=== PATIENT | female | born 1970 | race African-American/Black ===

== ENCOUNTER 2019-04-18 17:19 | Emergency (ER) | payer OTHER, SELFPAY ==
--- NOTE | ~2019-04-18 | XR_ITS ---
EXAMINATION: XR ankle LT min 3V DATE: 04/18/2019 18:02 INDICATION: Lateral swelling at the left ankle TECHNIQUE: Anteroposterior, oblique, mortise, and lateral views of the left ankle were obtained. COMPARISON: None. FINDINGS: Alignment is normal. No fracture. Joint spaces are well maintained. No ankle joint effusion. The so ft tissues are unremarkable. IMPRESSION: 1. Negative left ankle radiographs. Reviewed, dictated and finalized at location A. [facility] [employer]
--- NOTE | ~2019-04-18 | XR_ITS ---
EXAMINATION: XR ankle RT min 3V DATE: 04/18/2019 18:03 INDICATION: Lateral right ankle swelling TECHNIQUE: Anteroposterior, oblique, mortise, and lateral views of the right ankle were obtained. COMPARISON: None. FINDINGS: Alignment is normal. No fracture. Joint spaces are well maintained. No ankle joint effusion. The so ft tissues are unremarkable. IMPRESSION: 1. Negative right ankle radiographs. Reviewed, dictated and finalized at location A. [employer]
[2019-04-18 17:21] VITALS: BP 137/65; PULSE 77; RESP 19; TEMP 36.5; O2SAT 100
--- NOTE | 2019-04-18 17:54 | ED.LOWEXIN ---
HPI - Extremity Injury (Lower) General Chief Complaint: Extremity Injury, Lower <Bianca Sapp PA-C - Last Filed: 04/18/19 19:25> Stated Complaint: ankle pain, knots and leg pain <Bianca Sapp PA-C - Last Filed: 04/18/19 19:25> Time Seen by Provider: 04/18/19 17:37 <Bianca Sapp PA-C - Last Filed: 04/18/19 19:25> Source: patient <REESE Mckeon Last Filed: 04/18/19 19:25> Mode of arrival: ambulatory <REESE Mckeon Last Filed: 04/18/19 19:25> Limitations: no limitations <Bianca Sapp PA-C - Last Filed: 04/18/19 19:25> History of Present Illness HPI Narrative: This is a 48 year old female that presents to the ER for bilateral lateral ankle swelling since yesterday. No known injury or trauma. Reports she noted some swelling to the outside of her ankles. Denies any pain to the area. Also reports some intermittent pain down the back of her legs. Denies fever, erythema, back pain, numbness or weakness. <Bianca Sapp PA-C - Last Filed: 04/18/19 19:25> Related Data Home Medications: Home Medications Medication Instructions Recorded Confirmed simvastatin mg 04/18/19 <Bianca Sapp PA-C - Last Filed: 04/18/19 19:25> Allergies/Adverse Reactions: Allergies Allergy/AdvReac Type Severity Reaction Status Date / Time erythromycin base Allergy Mild Unknown Verified 04/18/19 17:30 Penicillins Allergy Mild Unknown Verified 04/18/19 17:30 <REESE Mckeon Last Filed: 04/18/19 19:25> Review of Systems Review of Systems: Narrative: CONSTITUTIONAL: Denies fever SKIN: Denies rash or erythema MUSCULOSKELETAL: Denies back pain, joint pain, or myalgia. NEUROLOGIC: Denies numbness, or weakness. <REESE Mckeon Last Filed: 04/18/19 19:25> All systems reviewed & are unremarkable except as noted in HPI and below <Bianca Sapp PA-C - Last Filed: 04/18/19 19:25> [facility] Past Medical History Medical History: Medical History (Updated 04/18/19 @ 19:11 by Bianca Sapp PA-C) History of hyperlipidemia History of hypertension <Bianca Sapp PA-C - Last Filed: 04/18/19 19:25> Surgical History Surgical History: Surgical History (Updated 04/18/19 @ 17:59 by Bianca Sapp PA-C) History of appendectomy History of thyroidectomy History of tubal ligation <Bianca Sapp PA-C - Last Filed: 04/18/19 19:25> Social History Social History: Social History Gender identity (if verbalized by the patient): Female <Bianca Sapp PA-C - Last Filed: 04/18/19 19:25> Exam Narrative: Exam Narrative: GENERAL: Well-appearing, well-nourished, and in no acute distress. HEAD: Normocephalic, atraumatic. EYES: EOMI. CHEST: Clear to auscultation. No respiratory distress. No wheezes rales or rhonchi HEART: Regular rate and rhythm. No murmur heard. Normal peripheral pulses. BACK: No midline spinal tenderness EXTREMITIES: Normal range of motion. Mild swelling just anterior to the lateral malleoli bilaterally. No erythema or warmth. Strength equal in bilateral lower extremities. Normal sensation. Normal DP pulses SKIN: Warm, dry, no rash. NEURO: No focal deficits. Alert and oriented x3. PSYCH: Normal mood and affect <Bianca Sapp PA-C - Last Filed: 04/18/19 19:25> Course Vital Signs Vital signs: Vital Signs Temperature 36.5 C 04/18/19 17:21 Pulse Rate 77 04/18/19 17:21 Respiratory Rate 19 04/18/19 17:21 Blood Pressure 137/65 04/18/19 17:21 Pulse Oximetry 100 04/18/19 17:21 Temperature 36.5 C 04/18/19 17:21 Pulse Rate 77 04/18/19 17:21 Respiratory Rate 19 04/18/19 17:21 Blood Pressure 137/65 04/18/19 17:21 Pulse Oximetry 100 04/18/19 17:21 <Bianca Sapp PA-C - Last Filed: 04/18/19 19:25> Vital Signs Temperature 36.5 C 04/18/19 17:21 Pulse Rate 77 04/18/19 17:21 Respiratory Rate 19 04/18/19 17:21 Blood Pressure 137/65 04/18/19 17:2
[2019-04-18 18:12] LABS: Basophils Absolute Auto 0.1 K/mm3 (0.0-0.1); Basophils Percent Auto 0.7 % (0.2-1.2); Eosinophils Absolute Auto 0.1 K/mm3 (0-0.3); Eosinophils Percent Auto 1.2 % (0-4.4); Hematocrit 41.4 % (37.0-47.0); Hemoglobin 14.3 g/dL (12.0-15.0); Immature Granulocyte Absolute 0.01 K/mm3 (0.00-0.031); Immature Granulocyte Percent A 0.1 % (0-0.5); Lymphocytes Percent Auto 45.5 % (18.3-44.2); Mean Corpuscular HGB Conc 34.5 g/dl (32-36); Mean Corpuscular Hemoglobin 29.7 pg (26-34); Mean Corpuscular Volume 85.9 fl (80-100); Mean Platelet Volume 9.9 fl (7.4-10.4); Monocytes Absolute Auto 0.5 K/mm3 (0.1-0.6); Monocytes Percent Auto 6.5 % (2.6-8.5); Neutrophils Absolute Auto 3.3 K/mm3 (1.3-6.7); Platelet Count Result 279 k/mm3 (150-375); Red Blood Count 4.82 M/mm3 (4.2-5.4); Red Cell Distribution Width 11.7 % (11.5-14.5); White Blood Count 7.3 K/mm3 (4.5-10.0)
[2019-04-18 18:28] LABS: Blood Urea Nitrogen 11 mg/dL (7-17); CRP < 0.5 mg/dL (<1.0); Calcium 9.3 mg/dL (8.4-10.2); Carbon Dioxide 29 mmol/L (22-30); Chloride 99 mmol/L (98-107); Estimated Glomerular Filt Rate > 60; Glucose 105 mg/dL (65-105); Potassium 3.6 mmol/L (3.4-5.0); Sodium 140 mmol/L (137-145); Uric Acid 7.1 mg/dL (2.5-7.5)
[2019-04-18 18:34] LABS: Erythrocyte Sedimentation Rate 15 mm/hr (0-20)
== END 2019-04-18 19:34 | disposition home or self-care (01) ==
PROVIDERS: Physician Assistant; Emergency Provider Emergency Medicine
DX: M25.472 Effusion, left ankle (principal); M25.471 Effusion, right ankle; E78.5 Hyperlipidemia, unspecified; I10 Essential (primary) hypertension; E89.0 Postprocedural hypothyroidism
CPT/HCPCS: 36415; 73610; 80048; 84550; 85025; 85652; 86140; 99284

== ENCOUNTER 2019-05-20 16:15 | Emergency (ER) | payer OTHER, SELFPAY ==
[2019-05-20] VITALS (20 sets, daily range): BP systolic 140–151; BP diastolic 70–74; PULSE 58–72; RESP 12–22; TEMP 37.1; O2SAT 95–100
--- NOTE | ~2019-05-20 | XR_ITS ---
EXAMINATION: XR chest 2V DATE: 05/20/2019 16:36 INDICATION: Midsternal chest pain. Cough. TECHNIQUE: Frontal and lateral views of the chest were obtained. COMPARISON: None. FINDINGS: The chest demonstrates clear lungs without pneumonia, pleural effusion, or pneumothorax. Th e heart size is normal. IMPRESSION: 1. No acute cardiopulmonary disease. Reviewed, dictated and finalized at location A.
--- NOTE | 2019-05-20 16:24 | ED.CHESTPAIN ---
HPI - Chest Pain General Chief Complaint: Chest Pain Stated Complaint: Chest Pain Time Seen by Provider: 05/20/19 16:21 Source: patient Mode of arrival: ambulatory Limitations: no limitations History of Present Illness HPI narrative: A 48 y/o female presents to the ED with c/o nonradiating midsternal CP. Pt states that the CP started this morning and has been intermittent since. She notes that it is a quick shock of pain that only lasts a few seconds. Pt does not note any aggravating or alleviating factors for the CP. She denies SOB, nausea, and ABD pain. Pt has no other complaints at this time. complaint: chest pain (Midsternal) Onset (ago): hour(s) (Today) Timing of current episode: episodic Pain location: other (Midsternal) Pain radiation: none Quality: other (Shock) Relieving factors: nothing Exacerbating factors: nothing Associated symptoms: other (None) Related Data Home Medications Medication Instructions Recorded Confirmed simvastatin mg 04/18/19 aspirin 81 mg PO DAILY 05/20/19 bisoprolol-hydrochlorothiazide tablet 05/20/19 Allergies Allergy/AdvReac Type Severity Reaction Status Date / Time erythromycin base Allergy Mild Unknown Verified 04/18/19 17:30 Penicillins Allergy Mild Unknown Verified 04/18/19 17:30 Review of Systems Review of Systems: All systems reviewed & are unremarkable except as noted in HPI and below Cardiovascular: Cardiovascular: Reports chest pain (Midsternal) Respiratory: Respiratory: Denies dyspnea Gastrointestinal: Gastrointestinal: Denies abdominal pain and Denies nausea PMFSH Past Medical History Medical History (Updated 05/20/19 @ 20:24 by Yosvany Linn DO) History of hyperlipidemia History of hypertension History of hysteroscopy Surgical History Surgical History History of appendectomy History of thyroidectomy History of tubal ligation Social History Social History (Updated 05/20/19 @ 16:28 by Tammy Parker) Smoking status: Unknown if ever smoked Gender identity (if verbalized by the patient): Female Exam Narrative: Exam Narrative: APPEARANCE: No acute distress, nontoxic, resting in bed EYES: EOMI HEENT: Normocephalic, atraumatic, OMM RESPIRATORY: No respiratory distress Clear to auscultation bilaterally with no rhonchi wheezing or rales. CARDIOVASCULAR: Regular rate and rhythm without murmurs rubs or gallops. Chest: Tender to palpation over the left anterior chest just lateral to the sternum in the region of ribs 8 no sign of ecchymosis ABDOMINAL: Soft, nontender, nondistended, no rebound or guarding MUSCULOSKELETAl: Moves all extremities. No clubbing, cyanosis or edema. NEURO: Awake and alert. Following commands, speech normal, no focal deficits SKIN:: Warm, dry. No rashes lesions or abrasions PSYCHIATRIC: Normal affect/mood, Course Course Emergency Course: Patient is had no chest pain while in ED Discussed with patient results of workup and diagnosis. Discussed need for follow-up with primary care, proper use of medication, and reasons to return to the emergency department. Patient understands and agrees to current treatment plan Vital Signs Vital signs: Vital Signs Pulse Rate 72 05/20/19 16:20 Respiratory Rate 15 05/20/19 16:20 Blood Pressure 151/74 H 05/20/19 16:20 Pulse Oximetry 100 05/20/19 16:20 Temperature 98.7 F 05/20/19 16:29 Pulse Rate 61 05/20/19 19:45 Respiratory Rate 20 05/20/19 19:45 Blood Pressure 140/70 05/20/19 16:29 Pulse Oximetry 100 05/20/19 18:45 MDM - Chest Pain MDM Narrative Medical decision making narrative: Patient's EKGs and labs are without significant high risk changes. Cardiac risk factors reviewed. Patient is felt likely low risk for ACS and reasonable for further risk stratification testing as an outpatient. Pain was not sudden or maximal in onset without tearing or ripping quality. No other signs of symptoms suggest aortic di
--- NOTE | 2019-05-20 16:26 | ECG_ITS ---
Measurements Intervals [place] Rate: 68 P: 3 RI: 154 QRS: 61 QRSD: 87 T: 37 QT: 409 QTc: 435 Interpretive Statements SINUS RHYTHM NORMAL ECG Electronically Signed On 05-20-2019 21:04:19 CDT by Neo Sharma D.O.
[2019-05-20 16:50] LABS: Basophils Absolute Auto 0.1 K/mm3 (0.0-0.1); Basophils Percent Auto 0.8 % (0.2-1.2); Eosinophils Absolute Auto 0.1 K/mm3 (0-0.3); Eosinophils Percent Auto 1.8 % (0-4.4); Hematocrit 40.6 % (37.0-47.0); Lymphocytes Absolute Auto 2.71 K/mm3 (0.9-3.2); Lymphocytes Percent Auto 43.8 % (18.3-44.2); Mean Corpuscular HGB Conc 34.5 g/dl (32-36); Mean Corpuscular Hemoglobin 29.7 pg (26-34); Mean Platelet Volume 9.6 fl (7.4-10.4); Monocytes Absolute Auto 0.5 K/mm3 (0.1-0.6); Monocytes Percent Auto 7.3 % (2.6-8.5); Neutrophils Absolute Auto 2.9 K/mm3 (1.3-6.7); Neutrophils Percent Auto 46.3 % (45.5-73.1); Platelet Count Result 262 k/mm3 (150-375); Red Blood Count 4.72 M/mm3 (4.2-5.4); Red Cell Distribution Width 11.9 % (11.5-14.5); White Blood Count 6.2 K/mm3 (4.5-10.0)
[2019-05-20 16:59] LABS: Prothrombin Time 12.6 Seconds (11.1-14.7)
[2019-05-20 17:00] LABS: Partial Thromboplastin Time 26.5 SECONDS (22.3-36.8)
[2019-05-20 17:01] LABS: Alanine Aminotransferase 27 U/L (4-35); Albumin Level 4.1 g/dL (3.5-5.1); Alkaline Phosphatase 94 U/L (38-126); Aspartate Amino Transferase 33 U/L (14-36); Bilirubin,Total 0.4 mg/dL (0.2-1.3); Blood Urea Nitrogen 10 mg/dL (7-17); Calcium 8.9 mg/dL (8.4-10.2); Carbon Dioxide 31 mmol/L (22-30); Chloride 100 mmol/L (98-107); Estimated CRCL calculation 81 ml/min; Estimated Glomerular Filt Rate > 60; Glucose 95 mg/dL (65-105); Lipase 107 U/L (23-300); Potassium 3.4 mmol/L (3.4-5.0); Sodium 138 mmol/L (137-145)
[2019-05-20 17:13] LABS: Troponin I < 0.012 ng/mL (0.000-0.034)
[2019-05-20 20:02] LABS: Troponin I < 0.012 ng/mL (0.000-0.034)
== END 2019-05-20 20:39 | disposition home or self-care (01) ==
PROVIDERS: Emergency Provider Emergency Medicine; PCP Emergency Medicine
DX: R07.89 Other chest pain (principal); I10 Essential (primary) hypertension; E78.5 Hyperlipidemia, unspecified
CPT/HCPCS: 36415; 71046; 80053; 83690; 84484; 85025; 85610; 85730; 93005; 99284

== ENCOUNTER 2019-11-30 14:37 | Outpatient (CLI) | payer OTHER, SELFPAY ==
--- NOTE | ~2019-11-30 | US_ITS ---
EXAMINATION: US soft tissue head and neck DATE: 11/30/2019 15:13 INDICATION: Left anterior neck localized swelling. TECHNIQUE: Multiple grayscale and Doppler ultrasound images of the neck were obtained. COMPARISON: None FINDINGS: There is no abnormal mass or lymphadenopathy in the patient's area of concern in left anter ior neck. IMPRESSION: 1. No abnormal mass or lymphadenopathy in the patient's area of concern in left anterior neck. Reviewed, dictated and finalized at location A.
== END 2019-11-30 14:38 | disposition home or self-care (01) ==
LOC: ANHIMG 14:42
PROVIDERS: PCP Family Medicine; Visit Provider Family Medicine
DX: R22.1 Localized swelling, mass and lump, neck (principal)
CPT/HCPCS: 76536

== ENCOUNTER 2020-12-28 17:18 | Emergency (ER) | payer OTHER, SELFPAY ==
[2020-12-28 18:03] VITALS: BP 163/93; PULSE 102; RESP 20; TEMP 36.3; O2SAT 98
[2020-12-28 19:40] VITALS: BP 155/88; PULSE 88; RESP 14; TEMP 36.4; O2SAT 98
--- NOTE | 2020-12-28 19:57 | ED.GENADULT ---
HPI - General Adult General Chief complaint: Extremity Problem,Nontraumatic Stated complaint: right side heavy Time Seen by Provider: 12/28/20 19:44 Source: patient and RN notes reviewed Mode of arrival: ambulatory Limitations: no limitations History of Present Illness HPI narrative: Patient is a 50-year-old female who presents to emergency department for evaluation of right leg pain and heaviness that began today and resolved she has been having some issues with musculoskeletal pain and seeing primary care last week for upper back pain and heaviness of the right upper extremity which at this point is resolved she notes today while sitting in the waiting room she developed some pain around the SI joint she denies any chest pain shortness of breath or other complaints presents nondistressed. Patient has not taken anything for symptoms Related Data Home Medications Medication Instructions Recorded Confirmed simvastatin mg 04/18/19 aspirin 81 mg PO DAILY 05/20/19 bisoprolol-hydrochlorothiazide tablet 05/20/19 Allergies Allergy/AdvReac Type Severity Reaction Status Date / Time erythromycin base Allergy Mild Unknown Verified 12/28/20 20:02 Penicillins Allergy Mild Unknown Verified 12/28/20 20:02 Review of Systems Review of Systems: All systems reviewed & are unremarkable except as noted in HPI and below PMFSH Past Medical History Medical History History of hyperlipidemia History of hypertension Surgical History Surgical History History of appendectomy History of hysteroscopy History of thyroidectomy History of tubal ligation Social History Social History Smoking status: Unknown if ever smoked Gender identity (if verbalized by the patient): Female Exam Narrative: GENERAL: Well-appearing, well-nourished, and in no acute distress. HEAD: Normocephalic, atraumatic. EYES: PERRLA and EOMI. ENT: Nares clear, no rhinorrhea or epistaxis. Mucous membranes moist. NECK: Supple. No adenopathy or masses. CHEST: Clear to auscultation. No respiratory distress. No wheezes rales or rhonchi HEART: Regular rate and rhythm. No murmur heard. Normal peripheral pulses. EXTREMITIES: Normal range of motion. No edema. SKIN: Warm, dry, no rash. NEURO: No focal deficits. Alert and oriented x3. Cranial nerves II through XII grossly intact. Normal speech. Normal gait. Motor and sensory intact and symmetrical in the extremities PSYCH: Normal mood and affect. Course Course Emergency Course: Patient with musculoskeletal discomfort will be discharged home with outpatient follow-up given reasons to return patient is afebrile nontoxic-appearing nondistressed felt appropriate for outpatient reevaluation Vital Signs Vital signs: Vital Signs Temperature 97.4 F L 12/28/20 18:03 Pulse Rate 102 H 12/28/20 18:03 Respiratory Rate 20 12/28/20 18:03 Blood Pressure 163/93 H 12/28/20 18:03 Pulse Oximetry 98 12/28/20 18:03 Temperature 97.6 F 12/28/20 19:40 Pulse Rate 88 12/28/20 19:40 Respiratory Rate 14 12/28/20 19:40 Blood Pressure 155/88 H 12/28/20 19:40 Pulse Oximetry 98 12/28/20 19:40 Medical Decision Making MDM Narrative Medical decision making narrative: Patient in the room nondistressed aware of case findings treatment plan diagnosis. Patients injury or pain is consistent with musculoskeletal etiology. No signs of neurological or vascular compromise on exam. Compartments and tisues are soft without signs of compartment syndrome. Pain is felt appropriate for further evaluation on an outpatient basis. Vital Signs Vital Signs: Vital Signs Temperature 97.4 F L 12/28/20 18:03 Pulse Rate 102 H 12/28/20 18:03 Respiratory Rate 20 12/28/20 18:03 Blood Pressure 163/93 H 12/28/20 18:03 Pulse Oximetry 98 12/28/20 18:03
[2020-12-28 20:37] VITALS: BP 155/96; PULSE 73; RESP 18; TEMP 36.8; O2SAT 100
== END 2020-12-28 20:39 | disposition home or self-care (01) ==
LOC: ANHED 20:13
PROVIDERS: Emergency Provider Family Medicine; PCP Family Medicine
DX: M79.604 Pain in right leg (principal); I10 Essential (primary) hypertension; E78.5 Hyperlipidemia, unspecified
CPT/HCPCS: 99283

== ENCOUNTER 2021-04-26 17:07 | Emergency (ER) | payer OTHER, SELFPAY ==
--- NOTE | ~2021-04-26 | XR_ITS ---
EXAMINATION: XR chest 2V DATE: 04/26/2021 17:44 INDICATION: Chest pain TECHNIQUE: PA and lateral views of the chest were obtained. COMPARISON: Chest radiograph dated 05/20/2019 FINDINGS: The lungs remain clear with no focal airspace opacities, pulmonary edema, pleural effusion or pneumot horax. The cardiomediastinal silhouette is normal. Visualized bones and soft tissues are unremarkable . IMPRESSION: 1. No acute cardiopulmonary disease. Reviewed, dictated and finalized at location A. [facility]
--- NOTE | 2021-04-26 17:12 | ECG_ITS ---
Measurements Intervals [place] Rate: 75 P: 38 OR: 144 QRS: 52 QRSD: 78 T: 26 QT: 383 QTc: 428 Interpretive Statements SINUS RHYTHM BASELINE ARTIFACT- I, II, III, AVR, AVL, AVF NORMAL ECG Electronically Signed On 04-26-2021 18:19:13 SUBEDITOR by Neo Sharma D.O.
[2021-04-26 17:23] VITALS: BP 160/98; PULSE 76; RESP 18; TEMP 36.8; O2SAT 100
[2021-04-26 17:38] VITALS: O2SAT 99
--- NOTE | 2021-04-26 17:41 | PC.NURSE ---
pt to Xray at this time.
--- NOTE | 2021-04-26 17:49 | ED.CHESTPAIN ---
HPI - Chest Pain General Chief Complaint: Chest Pain Stated Complaint: chest pain Time Seen by Provider: 04/26/21 17:39 History of Present Illness HPI narrative: 50-year-old female presents to the emergency room with complaints of midsternal chest pain that she has had for the last 3 to 4days reports pain is present for 2 to 3 minutes at a time is occurred multiple times daily. Denies any alleviating or aggravating factors no history of similar chest pain. Denies associated symptoms such as Shortness of breath, dizziness, lightheadedness, or swelling in her feet. States took Tylenol yesterday and that alleviated her pain. Related Data Home Medications Medication Instructions Recorded Confirmed simvastatin mg 04/18/19 aspirin 81 mg PO DAILY 05/20/19 bisoprolol-hydrochlorothiazide tablet 05/20/19 Allergies Allergy/AdvReac Type Severity Reaction Status Date / Time erythromycin base Allergy Mild Unknown Verified 12/28/20 20:02 Penicillins Allergy Mild Unknown Verified 12/28/20 20:02 Review of Systems Review of Systems: CONSTITUTIONAL: Denies fever, chills, or sweats. EYES: Denies visual changes, redness, or discharge. ENT: Denies rhinorrhea, congestion, sore throat, or otalgia. CARDIOVASCULAR: Denies chest pain, palpitations, or edema. RESPIRATORY: Denies cough or dyspnea. GASTROINTESTINAL: Denies abdominal pain, nausea, vomiting, or diarrhea. GENITOURINARY: Denies dysuria or hematuria. SKIN: Denies rash or itching. MUSCULOSKELETAL: Denies back pain, joint pain, or myalgia. NEUROLOGIC: Denies headache, numbness, dizziness, or weakness. PSYCHIATRIC: Denies anxiety or depression. [facility] Past Medical History Medical History History of hyperlipidemia History of hypertension Surgical History Surgical History History of appendectomy History of hysteroscopy History of thyroidectomy History of tubal ligation Social History Social History Smoking status: Unknown if ever smoked Gender identity (if verbalized by the patient): Female Exam Narrative: GENERAL: Well-appearing, well-nourished, and in no acute distress. HEAD: Normocephalic, atraumatic. EYES: PERRLA and EOMI. ENT: Nares clear, no rhinorrhea or epistaxis. Mucous membranes moist. Oropharynx without tonsillar hypertrophy exudate or other lesions. Bilateral TMs pearly basurto nonbulging NECK: Supple. No adenopathy or masses. No carotid bruits or JVD CHEST: Clear to auscultation. No respiratory distress. No wheezes rales or rhonchi HEART: Regular rate and rhythm. No murmur heard. Normal peripheral pulses. ABDOMEN: Soft, nontender, nondistended, normal active bowel sounds. EXTREMITIES: Normal range of motion. No edema. SKIN: Warm, dry, no rash. NEURO: No focal deficits. Alert and oriented x3. PSYCH: Normal mood and affect. Course Course Emergency Course: Initial and repeat troponins are negative chest x-ray is normal CBC [id number] normal D-dimer was negative. Recommend patient follow-up with primary care physician in 2 to 3 days. Patient's heart score is 2. Patient is currently pain-free Vital Signs Vital signs: Vital Signs Temperature 36.8 C 04/26/21 17:23 Pulse Rate 76 04/26/21 17:23 Respiratory Rate 18 04/26/21 17:23 Blood Pressure 160/98 H 04/26/21 17:23 Pulse Oximetry 100 04/26/21 17:23 Temperature 36.4 C L 04/26/21 19:16 Pulse Rate 73 04/26/21 19:17 Respiratory Rate 17 04/26/21 19:17 Blood Pressure 153/87 H 04/26/21 19:16 Pulse Oximetry 98 04/26/21 18:14 MDM - Chest Pain Lab Data Result diagrams: 04/26/21 17:57 04/26/21 17:57 Labs: Lab Results 04/26/21 04/26/21 04/26/21 Range/Units 17:57 17:57 17:57 WBC 6.3 (4.5-10.0) K/mm3 RBC 4.97 (4.2-5.4) M/mm3 Hgb 15.1 H (12.0-15.0) g/dL Hct 43
[2021-04-26] MEDS: ASPIRIN 81 MG CHEWABLE TABLET 324 MG PO (17:58)
--- NOTE | 2021-04-26 18:03 | PC.NURSE ---
dropped one of the 81mg aspirin on the floor. pt did not want to take any of the 4 aspirins and was requesting all new 81mg aspirins. 4 of the 81mg aspirins were wasted and 4 new ones pulled from the pyxis.
[2021-04-26 18:06] LABS: Basophils Absolute Auto 0.1 K/mm3 (0.0-0.1); Eosinophils Absolute Auto 0.1 K/mm3 (0-0.3); Eosinophils Percent Auto 1.3 % (0-4.4); Hematocrit 43.5 % (37.0-47.0); Hemoglobin 15.1 g/dL (12.0-15.0); Immature Granulocyte Absolute 0.01 K/mm3 (0.00-0.031); Immature Granulocyte Percent A 0.2 % (0-0.5); Lymphocytes Percent Auto 46.4 % (18.3-44.2); Mean Corpuscular HGB Conc 34.7 g/dl (32-36); Mean Corpuscular Hemoglobin 30.4 pg (26-34); Mean Corpuscular Volume 87.5 fl (80-100); Mean Platelet Volume 9.6 fl (7.4-10.4); Monocytes Absolute Auto 0.4 K/mm3 (0.1-0.6); Monocytes Percent Auto 6.2 % (2.6-8.5); Neutrophils Absolute Auto 2.8 K/mm3 (1.3-6.7); Neutrophils Percent Auto 44.9 % (45.5-73.1); Platelet Count Result 299 k/mm3 (150-375); Red Blood Count 4.97 M/mm3 (4.2-5.4); Red Cell Distribution Width 12.3 % (11.5-14.5); White Blood Count 6.3 K/mm3 (4.5-10.0)
[2021-04-26 18:14] VITALS: BP 98/83; PULSE 85; RESP 22; O2SAT 98
[2021-04-26 18:18] LABS: Partial Thromboplastin Time 27.5 SECONDS (22.3-36.8); Prothrombin Time 12.7 Seconds (11.1-14.7)
[2021-04-26 18:19] LABS: Alanine Aminotransferase 19 U/L (4-35); Albumin Level 4.6 g/dL (3.5-5.1); Alkaline Phosphatase 99 U/L (38-126); Anion Gap 7 mmol/L (8-16); Aspartate Amino Transferase 37 U/L (14-36); Bilirubin,Total 0.7 mg/dL (0.2-1.3); Blood Urea Nitrogen 9 mg/dL (7-17); Calcium 9.3 mg/dL (8.4-10.2); Carbon Dioxide 30 mmol/L (22-30); Chloride 103 mmol/L (98-107); Estimated CRCL calculation 86 ml/min; Estimated Glomerular Filt Rate > 60; Glucose 89 mg/dL (65-110); Lipase 91 U/L (23-300); Potassium 3.3 mmol/L (3.4-5.0); Sodium 140 mmol/L (137-145)
[2021-04-26 18:31] LABS: Troponin I < 0.012 ng/mL (0.000-0.034)
[2021-04-26 18:49] LABS: D Dimer 0.36 ug/mL (<0.48)
[2021-04-26 19:16] VITALS: BP 153/87; PULSE 79; RESP 21; TEMP 36.4
[2021-04-26 19:17] VITALS: PULSE 73; RESP 17
--- NOTE | 2021-04-26 19:41 | PC.NURSE ---
Handoff received from Yasmeen PEREA. Patient lying in ED stretcher comfortably. AAOX4. GCS 15. Equal and unlabored resp. Skin is warm and dry. IV in place, secured and patent. No complaints at this time. Will repeat troponin at 20:00. Will continue to monitor.
[2021-04-26 21:06] LABS: Troponin I < 0.012 ng/mL (0.000-0.034)
[2021-04-26 21:33] VITALS: BP 157/70; PULSE 70; RESP 16; O2SAT 99
== END 2021-04-26 21:35 | disposition home or self-care (01) ==
PROVIDERS: Emergency Medicine; Emergency Provider Nurse Practitioner Family; PCP Emergency Medicine
DX: R07.89 Other chest pain (principal); I10 Essential (primary) hypertension; E78.5 Hyperlipidemia, unspecified
CPT/HCPCS: 36415; 71046; 80053; 83690; 84484; 85025; 85380; 85610; 85730; 93005; 99284; A9270

== ENCOUNTER 2021-08-29 20:52 | Emergency (ER) | payer OTHER, SELFPAY ==
--- NOTE | ~2021-08-29 | XR_ITS ---
EXAMINATION: XR chest 2V Exam Date/Time: 08/29/2021 21:25 CDT HISTORY: POSTERIOR bilateral-lateral rib pain WORSENING X2 WKS,HX HTN Comparison: 04/26/2021. RESULT: Lines, tubes, and devices: None. Lungs and pleura: Clear. Cardiomediastinal silhouette: Stable cardiomediastinal silhouette. Other: No acute osseous or upper abdominal finding. IMPRESSION: No acute cardiopulmonary process. Reviewed, dictated and finalized at location K.
[2021-08-29 21:00] VITALS: BP 140/51; PULSE 94; RESP 16; TEMP 36.8; O2SAT 100
--- NOTE | 2021-08-29 21:22 | ED.BACK ---
HPI - Back Pain/Injury General Chief Complaint: Back Pain/Injury Stated Complaint: mid back pain Time Seen by Provider: 08/29/21 21:08 History of Present Illness HPI Narrative: 50-year-old female presenting to the emergency department for evaluation of intermittent back pain. Patient states a few months ago she was having back pain and was prescribed naproxen and a muscle relaxant. Patient did not take the naproxen. Patient has been working out recently but is unsure of any incident of injury. Patient states that she was at her first job today and started develop some back pain which she describes as lateral rib pain. Patient did not take anything for the pain today. Patient denies any chest pain or shortness of breath. Patient denies any incident of falls or injuries. Patient denies any associated numbness or weakness. Related Data Home Medications Medication Instructions Recorded Confirmed simvastatin 20 mg tablet mg 04/18/19 aspirin 81 mg tablet,delayed 81 mg PO DAILY 05/20/19 release bisoprolol 5 tablet 05/20/19 mg-hydrochlorothiazide 6.25 mg tablet losartan 50 mg tablet tablet 08/29/21 pantoprazole 40 mg tablet,delayed tablet PO 08/29/21 release Allergies Allergy/AdvReac Type Severity Reaction Status Date / Time erythromycin base Allergy Mild Unknown Verified 08/29/21 21:04 Penicillins Allergy Mild Unknown Verified 08/29/21 21:04 Review of Systems Review of Systems: CONSTITUTIONAL: Denies fever, chills, or sweats. EYES: Denies visual changes, redness, or discharge. ENT: Denies rhinorrhea, congestion, sore throat, or otalgia. CARDIOVASCULAR: Denies chest pain, palpitations, or edema. RESPIRATORY: Denies cough or dyspnea. GASTROINTESTINAL: Denies abdominal pain, nausea, vomiting, or diarrhea. GENITOURINARY: Denies dysuria or hematuria. SKIN: Denies rash or itching. MUSCULOSKELETAL: See HPI NEUROLOGIC: Denies headache, numbness, or weakness. [facility] Past Medical History Medical History History of hyperlipidemia History of hypertension Surgical History Surgical History History of appendectomy History of hysteroscopy History of thyroidectomy History of tubal ligation Social History Social History Smoking status: Unknown if ever smoked Gender identity (if verbalized by the patient): Female Exam Narrative: APPEARANCE: Well appearing, no pain, no distress, well-nourished. HEAD: normocephalic, atraumatic. EYES: PERRLA/EOMI, conjunctivae clear. NOSE: Normal no drainage NECK: Supple. No adenopathy, no masses. RESPIRATORY: Airway patent, respirations nonlabored. Clear to auscultation bilaterally, no rales, rhonchi, wheezing. CARDIOVASCULAR: Regular rate and rhythm without murmurs rubs or gallops. ABDOMINAL: Soft, nontender, nondistended, normal bowel sounds MUSCULOSKELETAL: Moves all extremities. Moderate bilateral/lateral rib tenderness to palpation. No midline spinal tenderness to palpation. NEURO: Alert. Cranial nerves II through XII intact. Good gait. Good coordination SKIN: Warm, dry. Normal Color Course Course Emergency Course: Patient was provided additional medications for pain control for home. Patient was encouraged to close follow-up with her primary care physician. Vital Signs Vital signs: Vital Signs Temperature 98.2 F 08/29/21 21:00 Pulse Rate 94 08/29/21 21:00 Respiratory Rate 16 08/29/21 21:00 Blood Pressure 140/51 L 08/29/21 21:00 Pulse Oximetry 100 08/29/21 21:00 Oxygen Delivery Room Air 08/29/21 21:00 Temperature 98.2 F 08/29/21 21:00 Pulse Rate 94 08/29/21 21:00 Respiratory Rate 16 08/29/21 21:00 Blood Pressure 140/51 L 08/29/21 21:00 Pulse Oximetry 100 08/29/21 21:00 Oxygen Delivery Room Air 08/29/21 21:00 Discharge Plan Discharge Clinical Im
[2021-08-29] MEDS: NAPROXEN 500 MG TABLET PO (21:39)
== END 2021-08-29 22:00 | disposition home or self-care (01) ==
LOC: ANHED 21:54
PROVIDERS: Emergency Provider Emergency Medicine; PCP Emergency Medicine
DX: R07.81 Pleurodynia (principal); E78.5 Hyperlipidemia, unspecified; I10 Essential (primary) hypertension; E89.0 Postprocedural hypothyroidism
CPT/HCPCS: 71046; 99283; A9270

== ENCOUNTER → 2022-06-01 08:57 | Outpatient (CLI) | payer OTHER, SELFPAY ==
--- NOTE | ~2022-06-01 | XR_ITS ---
EXAMINATION: XR UGIAC wo kub DATE: 06/01/2022 09:45 INDICATION: Gastroesophageal reflux disease TECHNIQUE: The patient drank thick barium, gas-producing crystals, and thin barium. Conventional supi ne abdomen radiographs and fluoroscopy of the esophagus, stomach, and proximal small bowel were perfo rmed. Fluoroscopy exposure time was 2.5 minutes. The DAP for this procedure was 14.63 Gycm2. COMPARISON: None. FINDINGS: There is no mass or stricture of the esophagus. Esophageal motility is normal. There is a s mall sliding hiatal hernia. There was a small amount of spontaneous gastroesophageal reflux. The stom ach and proximal small bowel show normal folding patterns. IMPRESSION: 1. Small sliding hiatal hernia with minimal spontaneous gastroesophageal reflux. Reviewed, dictated and finalized at location B. IMPRESSION: 1. Small sliding hiatal hernia with minimal spontaneous gastroesophageal reflux .
--- NOTE | ~2022-06-01 | US_ITS ---
Thyroid ultrasound. Clinical History: Thyroid nodule Findings: Real-time sonography of the thyroid gland was performed. The right lobe is absent, compati ble prior right hemithyroidectomy. The left lobe measures 4.9 x 1.9 x 2.1 cm. The isthmus is 3 mm in AP diameter. Several subcentimeter thyroid nodules are present in the left lobe, measuring up to 7 mm in maximum diameter. Impression: Subcentimeter left thyroid lobe nodules. Prior right hemithyroidectomy.. Reviewed, dictated and finalized at location . Impression: Subcentimeter left thyroid lobe nodules. Prior right hemithyroidectomy..
== END ==
PROVIDERS: PCP Emergency Medicine; Visit Provider Emergency Medicine
DX: K21.9 Gastro-esophageal reflux disease without esophagitis (principal); E04.2 Nontoxic multinodular goiter; K44.9 Diaphragmatic hernia without obstruction or gangrene
CPT/HCPCS: 74246; 76536

== ENCOUNTER → 2022-09-06 14:46 | Outpatient (CLI) | payer OTHER, SELFPAY ==
--- NOTE | ~2022-09-06 | XR_ITS ---
Thoracic spine: Clinical Indication: Back pain AP and lateral views were performed. No fracture is seen. There is normal alignment of the vertebrae. The intervertebral disc spaces appe ar normal. Paravertebral soft tissues appear normal. Impression: No significant abnormalities noted. Reviewed, dictated and finalized at [facility]. Impression: No significant abnormalities noted.
== END ==
PROVIDERS: PCP Emergency Medicine; Visit Provider Emergency Medicine
DX: M62.830 Muscle spasm of back (principal)
CPT/HCPCS: 72070

== ENCOUNTER 2022-09-25 11:29 | Outpatient (CLI) | payer BC, SELFPAY ==
[2022-09-25 13:14] LABS: Alanine Aminotransferase 25 U/L (6-35); Albumin Level 4.1 g/dL (3.5-5.1); Alkaline Phosphatase 83 U/L (38-126); Anion Gap 3 mmol/L (8-16); Aspartate Amino Transferase 28 U/L (14-36); Bilirubin,Total 0.7 mg/dL (0.2-1.3); Blood Urea Nitrogen 11 mg/dL (7-17); Calcium 9.1 mg/dL (8.4-10.2); Carbon Dioxide 34 mmol/L (22-30); Chloride 104 mmol/L (98-107); Cholesterol 225 mg/dL (0-200); Estimated Glomerular Filt Rate > 60; Glucose 94 mg/dL (65-110); HDL Direct 63 mg/dL; Potassium 3.7 mmol/L (3.4-5.0); Sodium 141 mmol/L (137-145); Triglycerides 88 mg/dL (<150)
[2022-09-25 13:25] LABS: LDL Cholesterol Direct 109 mg/dL
== END 2022-09-25 11:30 | disposition home or self-care (01) ==
PROVIDERS: PCP Emergency Medicine; Visit Provider Internal Medicine Cardiovascular Disease
DX: Z86.39 Personal history of other endocrine, nutritional and metabolic disease (principal)
CPT/HCPCS: 36415; 80053; 80061; 84443

== ENCOUNTER 2022-12-04 08:19 | Outpatient (CLI) | payer BC, SELFPAY ==
--- NOTE | 2022-12-04 08:35 | ECHO_ITS ---
Patient Info Name: Elvia Camacho Age: 52 years : 1970 Gender: Female Ht: 60 in Wt: 165 lbs BSA: 1.81 m2 HR: 69 bpm BP: 168 / 96 mmHg Technical Quality: Fair Exam Date: 12/04/2022 9:00 AM Exam Location: [facility] Patient Status: Outpatient Admit Date: 12/04/2022 Staff Ordering Physician: Neo Sharma DO Psychotherapist Counselor: Ernestine Neo RDCS Attending Provider: Neo Sharma DO Referring Physician: Zachary VAN; Exam Type: CA echo doppler color flow Study Info Indications R01.1 - Cardiac murmur, unspecified Complete two-dimensional, color flow and Doppler transthoracic echocardiogram is performed. Summary 1. Complete two-dimensional, color flow and Doppler transthoracic echocardiogram is performed. 2. Left ventricular chamber dimension is normal. 3. Left ventricular systolic function is normal, estimated at 60-65%. 4. There is mild concentric increased left ventricular wall thickness. 5. The left ventricular diastolic function is grade II diastolic dysfunction. 6. E/e' 15 is elevated. 7. There is trace tricuspid valve regurgitation. 8. No pulmonary hypertension, estimated pulmonary arterial systolic pressure is 35 mmHg. Left Ventricle E/e' 15 is elevated. The left ventricular diastolic function is grade II diastolic dysfunction. Left ventricular chamber dimension is normal. Left ventricular systolic function is normal, estimated at 60-65%. There is mild concentric increased left ventricular wall thickness. Right Ventricle Right ventricular systolic function is normal and with normal TAPSE 2.6 cm.. Right ventricular chamber dimension is normal. Left Atria Left atrial chamber dimension is normal. Right Atria Right atrial chamber dimension is normal. Aortic Valve The aortic valve is trileaflet. There is no aortic valve stenosis. There is no aortic valve regurgitation. Pulmonic Valve There is no pulmonic regurgitation. Mitral Valve There is no mitral valve stenosis. There is no mitral valve regurgitation. Tricuspid Valve There is trace tricuspid valve regurgitation. No pulmonary hypertension, estimated pulmonary arterial systolic pressure is 35 mmHg. Pericardium/Pleural There is no pericardial effusion. Inferior Vena Cava Normal inferior vena cava with >50% collapse upon inspiration consistent with normal right atrial pressure, 5 mmHg. Aorta The aortic root size at the sinus of Valsalva is normal. Left Ventricular Outflow Tract Name Value Normal LVOT 2D LVOT Diameter 2.0 cm LVOT Doppler LVOT Peak Gradient 3 mmHg LVOT Mean Gradient 2 mmHg LVOT VTI 21 cm LVOT VTI/AV VTI Ratio 0.9 LVOT Stroke Volume 62 ml LVOT CO 3.8 l/min LVOT CI 2.1 l/min/m2 Pulmonic Valve Name Value Normal RVOT Doppler RVOT Peak Grad
== END 2022-12-04 08:20 | disposition home or self-care (01) ==
LOC: ANHCARD 08:20
PROVIDERS: PCP Emergency Medicine; Visit Provider Internal Medicine Cardiovascular Disease
DX: R01.1 Cardiac murmur, unspecified (principal); I07.1 Rheumatic tricuspid insufficiency; R93.1 Abnormal findings on diagnostic imaging of heart and coronary circulation
CPT/HCPCS: 93306

== ENCOUNTER 2022-12-20 18:43 | Emergency (ER) | payer BC, SELFPAY ==
--- NOTE | ~2022-12-20 | XR_ITS ---
XR chest 1V portable 12/20/2022 23:12 Indication: Dizziness Procedure: AP portable chest Comparison: 08/29/2021 Findings: Heart size normal. New nodular density left lower thorax. No focal pneumonia, edema, pleura l effusion or pneumothorax. Impression: 1: New nodular density left lower thorax. Recommend follow-up CT chest on a nonemergent basis. Reviewed, dictated and finalized at location A. Impression: 1: New nodular density left lower thorax. Recommend follow-up CT chest on a non emergent basis.
[2022-12-20 18:48] VITALS: BP 167/78; PULSE 95; RESP 16; TEMP 37.2; O2SAT 100
--- NOTE | 2022-12-20 22:49 | ED.DIZZY ---
HPI - Dizziness General Chief Complaint: Dizziness Stated Complaint: DIZZINESS [id number] Time Seen by Provider: 12/20/22 22:10 Source: patient Mode of arrival: ambulatory Limitations: no limitations History of Present Illness HPI Narrative: 52-year-old female presents today with complaints of intermittent dizziness over the last week. Patient states her blood pressure medicine was changed 2 weeks ago. Denies any chest pain, shortness of breath, urinary difficulties, dysuria, burning on urination. Denies any aggravating factors for her dizziness. Does endorse some back spasms that have happened while she has been here. States this happened in the past that she is fairly uncomfortable. Denies any other neurological symptoms. Related Data Home Medications Medication Instructions Recorded Confirmed aspirin 81 mg tablet,delayed 81 mg PO DAILY 05/20/19 09/25/22 release losartan 50 mg tablet tablet 08/29/21 09/25/22 pantoprazole 40 mg tablet,delayed tablet PO 08/29/21 09/25/22 release Allergies Allergy/AdvReac Type Severity Reaction Status Date / Time erythromycin base Allergy Mild Unknown Verified 12/20/22 22:20 Penicillins Allergy Mild Unknown Verified 12/20/22 22:20 Review of Systems Review of Systems: All systems reviewed & are unremarkable except as noted in HPI and below PMFSH Past Medical History Medical History History of hyperlipidemia History of hypertension Surgical History Surgical History History of appendectomy History of hysteroscopy History of thyroidectomy History of tubal ligation Social History Social History Smoking status: Unknown if ever smoked Gender identity (if verbalized by the patient): Female Exam Const: General: cooperative, healthy appearing, comfortable, no acute distress and well developed Orientation/consciousness: patient oriented x3 HENMT: Head: normal to inspection Eyes: General: appearance normal, both eyes and all related structures Resp: Effort & Inspection: normal respiratory effort and able to speak in complete sentences Auscultation: clear to auscultation bilaterally Cardio: Rate: regular rate Rhythm: regular rhythm Heart sounds: S1 normal heart sound present and S2 normal heart sound present : General: Yes no CVA tenderness Skin: General skin exam: normal color Neuro: General: patient oriented x3 Cranial nerves: Yes CN's II-XII intact bilaterally Cognition (Neuro): normal cognition Course Vital Signs Vital signs: Vital Signs Temperature 98.9 F 12/20/22 18:48 Pulse Rate 95 12/20/22 18:48 Respiratory Rate 16 12/20/22 18:48 Blood Pressure 167/78 H 12/20/22 18:48 Pulse Oximetry 100 12/20/22 18:48 Temperature 98.9 F 12/20/22 18:48 Pulse Rate 78 12/21/22 02:32 Respiratory Rate 16 12/21/22 02:32 Blood Pressure 157/78 H 12/21/22 02:32 Pulse Oximetry 100 12/21/22 02:32 MDM - Dizziness MDM Narrative Medical decision making narrative: 52 year old female HPI as noted Differentials as below. work up to include cbc, cmp, urinalysis, chest xray and ekg. cbc, cmp, without concerning findings. troponin negative and ekg no st elevation. Bp elevated during stay orthos negative. Suspect dizziness intermittently could be from elevated bp. Patient to monitor at home and follow up with her primary for follow up. Differential Diagnosis Differential diagnosis: Likely benign paroxysmal positional vertigo, orthostatic hypotension and other (hypertension, dizziness, dehydration) Medical Records Attestation: I reviewed the patient's medical records. Lab Data Attestation: I reviewed the patient's lab results. 12/20/22 23:48 12/21/22 00:50 Labs: Lab Results 12/20/22 12/21/22 12/21/22 Range/Units 23:48 00:44 00:50 WB
--- NOTE | 2022-12-20 23:01 | ECG_ITS ---
Measurements Intervals [place] Rate: 66 P: 22 ID: 144 QRS: 58 QRSD: 89 T: 32 QT: 424 QTc: 444 Interpretive Statements SINUS RHYTHM POOR R-WAVE PROGRESSION BORDERLINE ECG COMPARED TO ECG 04/26/2021 17:22:14 SLIGHTLY DIFFERENT PRECORDIAL LEAD POSITION Electronically Signed On 12-21-2022 7:39:22 CDT by Wilver Garcia M.D.
[2022-12-20] MEDS: SODIUM CHLORIDE 0.9% IV 500 ML 999 ML IV CONT (23:46)
[2022-12-21 00:01] LABS: Basophils Absolute Auto 0.1 K/mm3 (0.0-0.1); Basophils Percent Auto 0.8 % (0.2-1.2); Eosinophils Absolute Auto 0.1 K/mm3 (0-0.3); Eosinophils Percent Auto 1.9 % (0-4.4); Hematocrit 41.4 % (37.0-47.0); Hemoglobin 14.4 g/dL (12.0-15.0); Immature Granulocyte Absolute 0.01 K/mm3 (0.00-0.031); Immature Granulocyte Percent A 0.2 % (0-0.5); Lymphocytes Absolute Auto 2.89 K/mm3 (0.9-3.2); Lymphocytes Percent Auto 44.7 % (18.3-44.2); Mean Corpuscular HGB Conc 34.8 g/dl (32-36); Mean Corpuscular Hemoglobin 30.4 pg (26-34); Mean Corpuscular Volume 87.3 fl (80-100); Mean Platelet Volume 9.6 fl (7.4-10.4); Monocytes Absolute Auto 0.5 K/mm3 (0.1-0.6); Neutrophils Absolute Auto 2.9 K/mm3 (1.3-6.7); Neutrophils Percent Auto 45.4 % (45.5-73.1); Platelet Count Result 290 k/mm3 (150-375); Red Blood Count 4.74 M/mm3 (4.2-5.4); Red Cell Distribution Width 11.7 % (11.5-14.5); White Blood Count 6.5 K/mm3 (4.5-10.0)
[2022-12-21 00:54] LABS: Appearance Urine Clear (Clear); Bilirubin Urine Negative (Negative); Blood Urine Negative (Negative); Color Urine Yellow (Yellow); Glucose Urine UA Negative (Negative); Ketones Urine Negative (Negative); Leukocyte Esterase Ur Negative LEU/UL (Negative); Nitrate Urine Negative (Negative); Protein Urine Negative (Negative); Specific Grav Ur 1.007 (1.001-1.035); Urobilinogen Urine 0.2 mg/dL (<2.0); pH Urine 6.5 (5.0-9.0)
[2022-12-21 01:18] LABS: Alanine Aminotransferase 24 U/L (6-35); Albumin Level 4.3 g/dL (3.5-5.1); Alkaline Phosphatase 81 U/L (38-126); Anion Gap 3 mmol/L (8-16); Aspartate Amino Transferase 37 U/L (14-36); Bilirubin,Total 0.7 mg/dL (0.2-1.3); Blood Urea Nitrogen 10 mg/dL (7-17); Calcium 8.9 mg/dL (8.4-10.2); Carbon Dioxide 30 mmol/L (22-30); Chloride 106 mmol/L (98-107); Estimated CRCL calculation 83 ml/min; Estimated Glomerular Filt Rate > 60; Glucose 104 mg/dL (65-110); Sodium 139 mmol/L (137-145)
[2022-12-21 01:28] LABS: Troponin I < 0.012 ng/mL (0.000-0.034)
[2022-12-21 01:37] VITALS: BP 156/77; PULSE 65
[2022-12-21 01:38] VITALS: BP 159/89; PULSE 65
[2022-12-21 01:39] VITALS: BP 164/86; PULSE 80
[2022-12-21 01:47] LABS: Add Urine Microscopic? NO
[2022-12-21 02:32] VITALS: BP 157/78; PULSE 78; RESP 16; O2SAT 100
== END 2022-12-21 02:35 | disposition home or self-care (01) ==
PROVIDERS: Emergency Provider Nurse Practitioner Family; PCP Emergency Medicine
DX: R42 Dizziness and giddiness (principal); I10 Essential (primary) hypertension; E78.5 Hyperlipidemia, unspecified; E89.0 Postprocedural hypothyroidism; R94.31 Abnormal electrocardiogram [ECG] [EKG]
CPT/HCPCS: 36415; 71045; 80053; 81003; 84484; 85025; 93005; 96360; 99284; J7040

== ENCOUNTER 2023-01-24 12:23 | Outpatient (CLI) | payer BC, SELFPAY ==
--- NOTE | ~2023-01-24 | CT_ITS ---
CT Scan of the Chest without Contrast: Clinical Indication: Solitary pulmonary nodule Technique: Contiguous sections were acquired throughout the chest without intravenous contrast. Dose reduction technique was used on this scan by utilizing automated exposure control and iterative recon struction technique. The dose-length product (DLP) was 78.09 mGy-cm. Findings: Evidence of prior right hemithyroidectomy. There is no evidence of any significant mediastinal, hilar or axillary lymphadenopathy. The mediastin al soft tissues appear normal. There is no evidence of pleural or pericardial effusion. The lungs are clear. No pulmonary nodules or infiltrates are noted. Images through the upper abdomen reveal no abnormalities. Impression: No significant abnormalities seen. Reviewed, dictated and finalized at location . NCIAL PROFESSIONAL Impression: No significant abnormalities seen.
== END 2023-01-24 12:24 ==
PROVIDERS: PCP Internal Medicine Cardiovascular Disease; Visit Provider Emergency Medicine
DX: R91.1 Solitary pulmonary nodule (principal)
CPT/HCPCS: 71250

== ENCOUNTER 2023-03-12 17:10 | Emergency (ER) | payer BC, SELFPAY ==
--- NOTE | ~2023-03-12 | XR_ITS ---
EXAMINATION: XR chest 1V portable Exam Date/Time: 03/12/2023 22:35 SCIENTIFIC MANAGER HISTORY: near syncope Comparison: 12/20/2022; CT chest 01/24/2023. RESULT: Lines, tubes, and devices: Surgical clips in the right neck. Lungs and pleura: Clear. Cardiomediastinal silhouette: Stable. Other: No acute osseous or upper abdominal finding. IMPRESSION: No acute cardiopulmonary process. Reviewed, dictated and finalized at location K. NTIFIC MANAGER
[2023-03-12 17:36] VITALS: BP 145/88; PULSE 109; RESP 20; TEMP 36.6; O2SAT 98
--- NOTE | 2023-03-12 17:39 | ECG_ITS ---
Measurements Intervals [place] Rate: 104 P: 71 [place]: 138 QRS: 77 QRSD: 88 T: 58 QT: 346 QTc: 455 Interpretive Statements SINUS TACHYCARDIA MINIMAL Q WAVES- INFERIOR LEADS BORDERLINE ECG COMPARED TO ECG 12/20/2022 23:25:18 SINUS TACHYCARDIA NOW PRESENT Electronically Signed On 03-12-2023 17:56:30 EDUCATIONAL PROGRAMMING DIRECTOR by Neo Sharma D.O.
--- NOTE | 2023-03-12 22:20 | ECG_ITS ---
Measurements Intervals [place] Rate: 92 P: 55 MN: 151 QRS: 73 QRSD: 89 T: 49 QT: 375 QTc: 465 Interpretive Statements SINUS RHYTHM BASELINE ARTIFACT- V1 NORMAL ECG COMPARED TO ECG 03/12/2023 17:46:21 SINUS RHYTHM NOW PRESENT Electronically Signed On 03-13-2023 9:43:05 CEMENT AND CONCRETE PLANT WORKER by Neo Sharma D.O.
--- NOTE | 2023-03-12 22:27 | ED.SYNCOPE ---
HPI - Syncope General Chief Complaint: Dizziness Stated Complaint: dizzy Time Seen by Provider: 03/12/23 21:22 Source: patient and family Limitations: no limitations History of Present Illness HPI narrative: Patient is a 52-year-old female presents to the emergency department complaining of lightheadedness. Patient states that at work today around noon she was standing up in as she became lightheaded, improved when she is sitting down and resting, did not pass out. Patient denies any recent injuries. Patient denies fever, chest pain, shortness of breath, dysuria, diarrhea, melena, hematochezia, nausea, vomiting, abdominal pain, numbness, weakness, difficulty swelling, dysphonia, vision changes. Patient does admit to some recent rhinorrhea and a slight sore throat. Patient denies history of abnormal heart rhythms. Patient does admit to dehydration and having darker colored urine lately. Related Data Home Medications Medication Instructions Recorded Confirmed aspirin 81 mg tablet,delayed 81 mg PO DAILY 05/20/19 01/16/23 release pantoprazole 40 mg tablet,delayed tablet PO 08/29/21 01/16/23 release Allergies Allergy/AdvReac Type Severity Reaction Status Date / Time erythromycin base Allergy Mild Unknown Verified 01/16/23 14:30 Penicillins Allergy Mild Unknown Verified 01/16/23 14:30 Review of Systems Review of Systems: A 10 system review of systems was completed on the patient and is negative except for what is stated in the HPI. Nursing and ancillary documentation was reviewed. [facility] Past Medical History Medical History History of hyperlipidemia History of hypertension Surgical History Surgical History History of appendectomy History of hysteroscopy History of thyroidectomy History of tubal ligation Social History Social History Smoking status: Never smoker Gender identity (if verbalized by the patient): Female Comments At time of signature, I have reviewed and agree with nursing past medical, surgical, social and family history unless otherwise noted. Please see the nursing chart for further information. There is no relevant family history pertinent to the presenting complaint. Exam Narrative: CONST: No acute distress. Well nourished. HENMT: Head is normocephalic and atraumatic. Tacky mucous membranes. No posterior oropharynx erythema. Bilateral tympanic membranes are without erythema or bulging, there is slight serous fluid in the middle ear cavities bilaterally, no discharge, no canal erythema. Tonsils are 2+ bilaterally, no posterior or pharyngeal erythema. EYES: No conjunctival icterus, injection, or pallor. PERRL. NECK: No meningeal signs. No thyroid tenderness palpation or thyromegaly. No palpable cervical lymphadenopathy. RESP: Able to speak in full sentences. Normal respiratory effort. CTAB. CARDIO: Regular rate. Regular rhythm. 2+ DP and radial pulses bilaterally. GI: Nondistended. No tenderness to palpation. Soft. : No CVA tenderness to palpation. SKIN: No rashes or lesions noted on exposed skin. NEURO: Oriented x3. Moves all extremities. No dysmetria on [id number] testing bilaterally. Extraocular motions intact. No nystagmus. Sensation intact to light touch throughout all 4 extremities. No facial droop. Motor strength is 5/5 in all 4 extremities. EXTREM/MSK/BACK: No pedal edema. PSYCH: Normal affect. Course Vital Signs Vital signs: Vital Signs Temperature 97.8 F 03/12/23 17:36 Pulse Rate 109 H 03/12/23 17:36 Respiratory Rate 03/12/23 17:36 Blood Pressure 145/88 H 03/12/23 17:36 Pulse Oximetry 98 03/12/23 17:36 Oxygen Delivery Room Air 03/12/23 17:36 Temperature 97.8 F 03/12/23 17:36 Pulse Rate 109 H 03/12/23 17:36 Respiratory Rate 03/12/23 17:36 B
[2023-03-12 22:38] LABS: Basophils Absolute Auto 0.1 K/mm3 (0.0-0.1); Basophils Percent Auto 0.8 % (0.2-1.2); Eosinophils Percent Auto 0.1 % (0-4.4); Hematocrit 42.3 % (37.0-47.0); Hemoglobin 14.3 g/dL (12.0-15.0); Immature Granulocyte Absolute 0.01 K/mm3 (0.00-0.031); Immature Granulocyte Percent A 0.1 % (0-0.5); Lymphocytes Absolute Auto 1.83 K/mm3 (0.9-3.2); Lymphocytes Percent Auto 24.6 % (18.3-44.2); Mean Corpuscular HGB Conc 33.8 g/dl (32-36); Mean Corpuscular Hemoglobin 29.7 pg (26-34); Mean Corpuscular Volume 87.8 fl (80-100); Mean Platelet Volume 9.4 fl (7.4-10.4); Monocytes Absolute Auto 0.3 K/mm3 (0.1-0.6); Monocytes Percent Auto 3.9 % (2.6-8.5); Neutrophils Absolute Auto 5.2 K/mm3 (1.3-6.7); Neutrophils Percent Auto 70.5 % (45.5-73.1); Platelet Count Result 295 k/mm3 (150-375); Red Blood Count 4.82 M/mm3 (4.2-5.4); Red Cell Distribution Width 12.5 % (11.5-14.5); White Blood Count 7.4 K/mm3 (4.5-10.0)
[2023-03-12 22:52] LABS: Alanine Aminotransferase 19 U/L (6-35); Albumin Level 4.4 g/dL (3.5-5.1); Alkaline Phosphatase 87 U/L (38-126); Anion Gap 7 mmol/L (8-16); Aspartate Amino Transferase 29 U/L (14-36); Bilirubin,Total 0.7 mg/dL (0.2-1.3); Blood Urea Nitrogen 8 mg/dL (7-17); Calcium 9.3 mg/dL (8.4-10.2); Carbon Dioxide 30 mmol/L (22-30); Chloride 103 mmol/L (98-107); Estimated CRCL calculation 81 ml/min; Estimated Glomerular Filt Rate > 60; Glucose 152 mg/dL (65-110); Magnesium 2.1 mg/dL (1.6-2.3); Potassium 3.9 mmol/L (3.4-5.0); Sodium 140 mmol/L (137-145)
[2023-03-12] MEDS: ACETAMINOPHEN 500 MG TABLET 1000 MG PO (22:52)
[2023-03-12] MEDS: SODIUM CHLORIDE 0.9% IV 1,000 ML 999 ML IV CONT (22:52)
[2023-03-12 22:59] LABS: NT Pro B Type Natriuretic Pept < 20 pg/mL (19.9-100)
[2023-03-12 23:03] LABS: Appearance Urine Clear (Clear); Bilirubin Urine Negative (Negative); Blood Urine Negative (Negative); Color Urine Yellow (Yellow); Glucose Urine UA Negative (Negative); Ketones Urine Negative (Negative); Leukocyte Esterase Ur Negative LEU/UL (Negative); Nitrate Urine Negative (Negative); Protein Urine Negative (Negative); Specific Grav Ur 1.006 (1.001-1.035); Urobilinogen Urine 0.2 mg/dL (<2.0); pH Urine 7.5 (5.0-9.0)
[2023-03-12 23:03] LABS: Troponin I < 0.012 ng/mL (0.000-0.034)
[2023-03-12 23:10] LABS: D Dimer 0.38 ug/mL (<0.48)
[2023-03-12 23:11] LABS: Add Urine Microscopic? NO
[2023-03-12 23:22] LABS: Strep Group A RT-PCR NOT DETECTED (Negative)
[2023-03-12 23:34] LABS: Influenza A QL RT-PCR Negative (Negative); Influenza B QL RT-PCR Negative (Negative); SARS-CoV-2 RNA PCR Negative (Negative)
== END 2023-03-13 00:46 | disposition home or self-care (01) ==
PROVIDERS: Emergency Provider Student in an Organized Health Care Education/Training Program; PCP Internal Medicine Cardiovascular Disease
DX: R55 Syncope and collapse (principal); E78.5 Hyperlipidemia, unspecified; I10 Essential (primary) hypertension; Z20.822 Contact with and (suspected) exposure to COVID-19
CPT/HCPCS: 36415; 71045; 80053; 81003; 81025; 83735; 83880; 84443; 84484; 85025; 85380; 87636; 87651; 93005; 96360; 99284; A9270; J7030

== ENCOUNTER 2023-03-26 06:18 | Emergency (ER) | payer BC, SELFPAY ==
--- NOTE | ~2023-03-26 | XR_ITS ---
Portable chest x-ray Comparison: 03/12/2023 Clinical History: Weakness Findings: Lungs are clear, without focal consolidation or pleural effusion. Cardiomediastinal silho uette is stable. Bones and soft tissues are unremarkable. Impression: Normal chest. Reviewed, dictated and finalized at [facility]. GRATED CIRCUIT LAYOUT DESIGNER Impression: Normal chest.
--- NOTE | ~2023-03-26 | CT_ITS ---
CT ANGIOGRAM NECK AND HEAD History: CVA. Technique: Axial noncontrast imaging of the brain was performed. Serial spiral axial images through t he head and neck were than obtained during arterial phase IV injection of 100 cc of Omnipaque 350. 3- D postprocessing and MIP images were then reconstructed on the remote workstation. Dose reduction paola hnique was used on this scan by utilizing automated exposure control and iterative reconstruction paola hnique. The dose-length product (DLP) was 1450.23 mGy-cm. CTA neck findings: Bilateral vertebral arteries are patent. Bilateral common carotid, internal carot id, and external carotid arteries are patent. No large vessel occlusion. No stenosis or aneurysm. The proximal right internal carotid artery demonstrates 0% stenosis relative to the normal distal artery lumen diameter. The proximal left internal carotid artery demonstrates 0% stenosis relative to the n ormal distal artery lumen diameter. CTA head findings: Distal vertebral arteries, basilar artery, and posterior cerebral arteries are pat ent. Distal internal carotid arteries, middle cerebral arteries, and anterior cerebral arteries are p atent. No large vessel occlusion. No stenosis or aneurysm. Axial noncontrast imaging of the brain is unremarkable. No acute infarct, intracranial hemorrhage, or mass lesion identified. Carcamo-white differentiation preserved. Ventricles and some spaces are unremar kable. Paranasal sinuses and mastoid air cells are clear. Impression: Unremarkable exam. Reviewed, dictated and finalized at location . CTOR HEDIS Impression: Unremarkable exam.
[2023-03-26 06:28] VITALS: BP 148/85; PULSE 126; RESP 18; TEMP 36.5; O2SAT 100
--- NOTE | 2023-03-26 06:37 | ECG_ITS ---
Measurements Intervals [place] Rate: 106 P: 39 [place]: 112 QRS: 66 QRSD: 87 T: 23 QT: 336 QTc: 447 Interpretive Statements SINUS TACHYCARDIA WITH SHORT [place] INTERVAL NONSPECIFIC ST ELEVATION IN ANT/HIGH LAT LEADS MINIMAL Q WAVES- INFERIOR LEADS BORDERLINE ST-T WAVE ABNORMALITY- INFERIOR LEADS ABNORMAL ECG COMPARED TO ECG 03/12/2023 22:20:06 [address] NOW PRESENT ST (T WAVE) DEVIATION NOW PRESENT Electronically Signed On 03-26-2023 8:24:28 LITHOGRAPH OPERATOR by Neo Sharma D.O.
[2023-03-26 06:51] VITALS: BP 150/86; PULSE 100; RESP 15; O2SAT 100
[2023-03-26 06:53] LABS: Basophils Absolute Auto 0.1 K/mm3 (0.0-0.1); Basophils Percent Auto 0.7 % (0.2-1.2); Eosinophils Absolute Auto 0.2 K/mm3 (0-0.3); Hematocrit 43.3 % (37.0-47.0); Hemoglobin 14.3 g/dL (12.0-15.0); Immature Granulocyte Absolute 0.02 K/mm3 (0.00-0.031); Immature Granulocyte Percent A 0.2 % (0-0.5); Lymphocytes Percent Auto 39.2 % (18.3-44.2); Mean Corpuscular Hemoglobin 29.9 pg (26-34); Mean Corpuscular Volume 90.4 fl (80-100); Mean Platelet Volume 9.3 fl (7.4-10.4); Monocytes Absolute Auto 0.5 K/mm3 (0.1-0.6); Monocytes Percent Auto 6.5 % (2.6-8.5); Neutrophils Absolute Auto 4.2 K/mm3 (1.3-6.7); Neutrophils Percent Auto 51.4 % (45.5-73.1); Platelet Count Result 343 k/mm3 (150-375); Red Blood Count 4.79 M/mm3 (4.2-5.4); Red Cell Distribution Width 12.1 % (11.5-14.5); White Blood Count 8.2 K/mm3 (4.5-10.0)
[2023-03-26 07:04] LABS: INR 0.9; Partial Thromboplastin Time 24.4 SECONDS (22.3-36.8); Prothrombin Time 12.3 Seconds (11.1-14.7)
[2023-03-26 07:13] LABS: Alanine Aminotransferase 23 U/L (6-35); Albumin Level 3.7 g/dL (3.5-5.1); Alkaline Phosphatase 70 U/L (38-126); Anion Gap 6 mmol/L (8-16); Aspartate Amino Transferase 28 U/L (14-36); Bilirubin,Total 0.5 mg/dL (0.2-1.3); Blood Urea Nitrogen 18 mg/dL (7-17); Calcium 8.7 mg/dL (8.4-10.2); Carbon Dioxide 30 mmol/L (22-30); Chloride 101 mmol/L (98-107); Estimated CRCL calculation 62 ml/min; Estimated Glomerular Filt Rate > 60; Glucose 129 mg/dL (65-110); Potassium 3.5 mmol/L (3.4-5.0); Sodium 137 mmol/L (137-145)
--- NOTE | 2023-03-26 07:13 | ED.NEUROSD ---
HPI - Neuro Symptoms/Deficit General Chief Complaint: Neuro Symptoms/Deficit Stated Complaint: R arm and leg weakness Time Seen by Provider: 03/26/23 07:06 History of Present Illness HPI Narrative: Patient is a 52-year-old female who presents to the emergency this with complaint of right-sided. Patient states that she woke up at this and noticed that her right arm and right leg were weaker than her. Patient was still able to move her right, however, due to concern for stroke since she bold and will start her symptoms are consistent history she does have to the emergency department for further evaluation. Patient has been ambulatory without any difficulties. She states that her weakness has now resolved and she has no neurological deficits. Patient admits that her symptoms were more of paresthesias rather than actual weakness and states that she has had similar symptoms in the past which she attributed to her elevated blood pressure. Patient states that her blood pressure has been averaging around 140 systolic. Patient admits that she has been feeling funny ever since the beginning of this month when her marketing information analyst changed her blood pressure medication, again, for the 3rd time. Patient states that she is now on 300 mg of a blood pressure pill which also has a water pill in it, Irbresartan she believes. Patient denies any additional symptoms including chest pain, shortness of breath, nausea, vomiting, abdominal pain, dysuria, hematuria, constipation, diarrhea, melena, hematochezia, fevers or chills. Patient also denies any headaches, dizziness, lightheadedness, blurry visions, numbness and or tingling. There are no other modifying, alleviating, or precipitating factors at this time. Related Data Home Medications Medication Instructions Recorded Confirmed aspirin 81 mg tablet,delayed 81 mg PO DAILY 05/20/19 01/16/23 release pantoprazole 40 mg tablet,delayed tablet PO 08/29/21 01/16/23 release Allergies Allergy/AdvReac Type Severity Reaction Status Date / Time erythromycin base Allergy Mild Unknown Verified 01/16/23 14:30 Penicillins Allergy Mild Unknown Verified 01/16/23 14:30 Review of Systems Review of Systems: All systems are reviewed and are negative unless stated otherwise in the HPI. [facility] Past Medical History Medical History History of hyperlipidemia History of hypertension Surgical History Surgical History History of appendectomy History of hysteroscopy History of thyroidectomy History of tubal ligation Social History Social History Smoking status: Never smoker Gender identity (if verbalized by the patient): Female Exam Narrative: General: Alert, awake, afebrile, in no acute distress. HEENT: PERRL, no rhinorrhea, no post nasal drip, oropharynx clear. Neck: Trachea midline, no JVD, no lymphadenopathy. Cardiovascular: Regular rate and rhythm, no murmurs, rubs or gallops, no peripheral edema. Respiratory: Clear to auscultation bilaterally, no tachypnea, no wheezing, no rhonchi, no rubs, no respiratory distress. Abdomen: Soft, nontender, nondistended, no rebound, no guarding, no peritoneal signs. Musculoskeletal: No joint swelling or deformity, normal muscle tone. Skin: No rashes or petechia, no signs of infection. Psychiatric: Alert and oriented, normal behavior and judgment for situation. Neurological: Alert and oriented to person, place, and time. Follows all commands. No focal deficits, 5/5 motor strength in the bilateral upper and lower extremity, sensation intact bilateral upper and lower extremity, cranial nerves 2-12 grossly intact, speech is clear and fluent. Course Vital Signs Vital signs: Vital Signs Temperature 97.7 F 03/26/23 06:28 Pulse Rate 126 H 03/26/23 06:28 Respiratory Rate 18 03/26/23 06:28
[2023-03-26 07:24] LABS: Troponin I < 0.012 ng/mL (0.000-0.034)
[2023-03-26 07:45] VITALS: BP 166/75; PULSE 102; RESP 20; O2SAT 99
[2023-03-26 08:43] VITALS: BP 148/64; PULSE 93; RESP 15; O2SAT 98
[2023-03-26 09:16] VITALS: BP 143/74; PULSE 84; RESP 14; O2SAT 98
== END 2023-03-26 09:17 | disposition home or self-care (01) ==
PROVIDERS: Emergency Medicine; Emergency Provider Emergency Medicine; PCP Internal Medicine Cardiovascular Disease
DX: G45.9 Transient cerebral ischemic attack, unspecified (principal); I10 Essential (primary) hypertension; E78.5 Hyperlipidemia, unspecified
CPT/HCPCS: 36415; 70496; 70498; 71045; 80053; 84484; 85025; 85610; 85730; 93005; 99284; Q9967

== ENCOUNTER 2023-07-01 10:09 | Outpatient (CLI) | payer BC, SELFPAY ==
--- NOTE | ~2023-07-01 | XR_ITS ---
EXAMINATION: [id number] DATE: 07/01/2023 10:31 INDICATION: Left rib pain. TECHNIQUE: A frontal view of the chest and 2 views on 3 radiographs of the left ribs were obtained. COMPARISON: Chest single view 03/26/23 FINDINGS: There is no pneumonia, pleural effusion, or pneumothorax. The heart size is normal. There i s no rib fracture. There are surgical clips in the neck. IMPRESSION: 1. No rib fracture. Reviewed, dictated and finalized at location E. IMPRESSION: 1. No rib fracture.
== END 2023-07-01 10:10 ==
PROVIDERS: PCP Emergency Medicine; Visit Provider Emergency Medicine
DX: R07.81 Pleurodynia (principal); R10.9 Unspecified abdominal pain
CPT/HCPCS: 71101

== ENCOUNTER 2023-07-11 21:27 | Emergency (ER) | payer BC, SELFPAY ==
--- NOTE | ~2023-07-11 | XR_ITS ---
EXAMINATION: XR chest 2V DATE: 07/11/2023 21:56 INDICATION: Midsternal chest pain. TECHNIQUE: Frontal and lateral views of the chest were obtained. COMPARISON: Chest single view 03/26/2023 FINDINGS: There is mild scarring at the lung apices. No pleural effusion or pneumothorax. The heart s ize is normal. There are surgical clips in right neck. IMPRESSION: 1. Mild scarring at the lung apices. Reviewed, dictated and finalized at location E.
--- NOTE | 2023-07-11 21:30 | ECG_ITS ---
SEE SCANNED COPY FOR CONFIRMED REPORT MTDD
[2023-07-11 21:38] VITALS: BP 138/69; PULSE 60; RESP 14; TEMP 36.6; O2SAT 98
--- NOTE | 2023-07-11 21:39 | ED.GENADULT ---
HPI - General Adult General Chief complaint: Chest Pain Stated complaint: chest pain x2 days Time Seen by Provider: 07/11/23 21:32 History of Present Illness HPI narrative: patient 52-year-old female who presents emergency department with chief complaint of chest pain. Patient reports for the last 2 days she has been having intermittent episodes of uncomfortable feeling in the middle portion of her chest. Patient reports no radiation denies shortness of breath denies diaphoresis the patient reports that last for less than a minute whenever the episodes happen she is currently not having the discomfort. Patient reports she has had a stress test in the last year that was normal does report that she has history of hypertension and has history of heart murmur. Related Data Home Medications Medication Instructions Recorded Confirmed aspirin 81 mg tablet,delayed 81 mg PO DAILY 05/20/19 01/16/23 release pantoprazole 40 mg tablet,delayed tablet PO 08/29/21 01/16/23 release Allergies Allergy/AdvReac Type Severity Reaction Status Date / Time erythromycin base Allergy Mild Unknown Verified 01/16/23 14:30 Penicillins Allergy Mild Unknown Verified 01/16/23 14:30 Review of Systems Review of Systems: A 10 system review of systems was completed on the patient and is negative except for what is stated in the HPI. Nursing and ancillary documentation was reviewed. [facility] Past Medical History Medical History History of hyperlipidemia History of hypertension Surgical History Surgical History History of appendectomy History of hysteroscopy History of thyroidectomy History of tubal ligation Social History Social History Smoking status: Never smoker Gender identity (if verbalized by the patient): Female Exam Narrative: GENERAL: Well-appearing, well-nourished, and in no acute distress. HEAD: Normocephalic, atraumatic. EYES: PERRLA and EOMI. ENT: Nares clear, no rhinorrhea or epistaxis. Mucous membranes moist. NECK: Supple. CHEST: Clear to auscultation. No respiratory distress. HEART: Regular rate and rhythm. No murmur heard. Normal peripheral pulses. ABDOMEN: Soft, nontender, nondistended, normal active bowel sounds. EXTREMITIES: Normal range of motion. No edema. SKIN: Warm, dry, no rash. NEURO: No focal deficits. Alert and oriented x3. PSYCH: Normal mood and affect. Course Vital Signs Vital signs: Vital Signs Temperature 36.6 C 07/11/23 21:38 Pulse Rate 60 07/11/23 21:38 Respiratory Rate 14 07/11/23 21:38 Blood Pressure 138/69 07/11/23 21:38 Pulse Oximetry 98 07/11/23 21:38 Oxygen Delivery Room Air 07/11/23 21:38 Temperature 36.6 C 07/11/23 21:38 Pulse Rate 109 H 07/11/23 23:26 Respiratory Rate 15 07/11/23 23:26 Blood Pressure 140/90 07/11/23 23:26 Pulse Oximetry 100 07/11/23 23:26 Oxygen Delivery Room Air 07/11/23 21:53 Medical Decision Making MDM Narrative Medical decision making narrative: differential diagnosis: ACS, atypical chest pain, chest wall pain, EKG showed no acute ischemic changes labs were obtained that showed a normal CBC, normal CMP, troponin negative for 0hr and 3 hrs chest xray showed no infiltrate Vital Signs Vital Signs: Vital Signs Temperature 36.6 C 07/11/23 21:38 Pulse Rate 60 07/11/23 21:38 Respiratory Rate 14 07/11/23 21:38 Blood Pressure 138/69 07/11/23 21:38 Pulse Oximetry 98 07/11/23 21:38 Oxygen Delivery Room Air 07/11/23 21:38 Temperature 36.6 C 07/11/23 21:38 Pulse Rate 109 H 07/11/23 23:26 Respiratory Rate 15 07/11/23 23:26 Blood Pressure 140/90 07/11/23 23:26 Pulse Oximetry 100 07/11/23 23:26 Oxygen Delivery Room Air 07/11/23 21:53 Lab Data 07/11/23 21:49
[2023-07-11] MEDS: ASPIRIN 81 MG CHEWABLE TABLET 324 MG PO (21:47)
[2023-07-11 21:53] VITALS: O2SAT 98
[2023-07-11 22:08] LABS: Basophils Absolute Auto 0.1 K/mm3 (0.0-0.1); Basophils Percent Auto 0.9 % (0.2-1.2); Eosinophils Absolute Auto 0.1 K/mm3 (0-0.3); Eosinophils Percent Auto 1.7 % (0-4.4); Hematocrit 40.1 % (37.0-47.0); Hemoglobin 13.7 g/dL (12.0-15.0); Immature Granulocyte Absolute 0.01 K/mm3 (0.00-0.031); Immature Granulocyte Percent A 0.2 % (0-0.5); Lymphocytes Absolute Auto 3.35 K/mm3 (0.9-3.2); Lymphocytes Percent Auto 57.2 % (18.3-44.2); Mean Corpuscular HGB Conc 34.2 g/dl (32-36); Mean Corpuscular Hemoglobin 29.4 pg (26-34); Mean Corpuscular Volume 86.1 fl (80-100); Mean Platelet Volume 9.7 fl (7.4-10.4); Monocytes Absolute Auto 0.4 K/mm3 (0.1-0.6); Monocytes Percent Auto 6.7 % (2.6-8.5); Neutrophils Percent Auto 33.3 % (45.5-73.1); Platelet Count Result 281 k/mm3 (150-375); Red Blood Count 4.66 M/mm3 (4.2-5.4); Red Cell Distribution Width 12.4 % (11.5-14.5); White Blood Count 5.9 K/mm3 (4.5-10.0)
[2023-07-11 22:20] LABS: Partial Thromboplastin Time 25.5 Seconds (22.3-36.8); Prothrombin Time 13.2 Seconds (11.1-14.7)
[2023-07-11 22:21] LABS: Alanine Aminotransferase 20 U/L (6-35); Albumin Level 4.1 g/dL (3.5-5.1); Alkaline Phosphatase 74 U/L (38-126); Anion Gap 4 mmol/L (4-12); Aspartate Amino Transferase 25 U/L (14-36); Bilirubin,Total 0.4 mg/dL (0.2-1.3); Blood Urea Nitrogen 10 mg/dL (7-17); Calcium 8.8 mg/dL (8.4-10.2); Carbon Dioxide 32 mmol/L (22-30); Chloride 103 mmol/L (98-107); Estimated CRCL calculation 72 ml/min; Estimated Glomerular Filt Rate > 60; Glucose 110 mg/dL (65-110); Lipase 126 U/L (23-300); Potassium 3.3 mmol/L (3.4-5.0); Sodium 139 mmol/L (137-145)
[2023-07-11 22:32] LABS: Troponin I < 0.012 ng/mL (0.000-0.034)
[2023-07-11 23:26] VITALS: BP 140/90; PULSE 109; RESP 15; O2SAT 100
--- NOTE | 2023-07-12 00:34 | ECG_ITS ---
SEE SCANNED COPY FOR CONFIRMED REPORT MTDD
[2023-07-12 01:03] LABS: Troponin I < 0.012 ng/mL (0.000-0.034)
[2023-07-12 01:30] VITALS: BP 134/88; PULSE 89; RESP 15; O2SAT 100
== END 2023-07-12 01:31 | disposition home or self-care (01) ==
PROVIDERS: Emergency Provider Emergency Medicine; PCP Emergency Medicine
DX: R07.89 Other chest pain (principal); I10 Essential (primary) hypertension; E78.5 Hyperlipidemia, unspecified; E89.0 Postprocedural hypothyroidism; Z79.82 Long term (current) use of aspirin
CPT/HCPCS: 36415; 71046; 80053; 83690; 84484; 85025; 85610; 85730; 93005; 99284; A9270

== ENCOUNTER 2023-07-15 08:22 | Outpatient (CLI) | payer BC, SELFPAY ==
--- NOTE | ~2023-07-15 | US_ITS ---
EXAMINATION: US abdomen complete DATE: 07/15/2023 09:29 INDICATION: Generalized abdominal pain TECHNIQUE: Multiple grayscale and Doppler ultrasound images of the abdomen were obtained. COMPARISON: None FINDINGS: . The pancreatic head and body are normal in appearance. The pancreatic tail is not visualized. Abdo sonya aorta is normal in caliber measuring 2.1 cm proximally tapering to 1.5 cm distally. The visuali zed proximal to mid inferior vena cava is normal. Liver has normal echogenicity and contour, with a s mooth surface. No liver lesion identified. No intrahepatic biliary duct dilation suspected. Portal ve nous flow was seen in the hepatopetal, normal direction and has normal Doppler waveform. There are a few large echogenic and shadowing gallstones within the otherwise normal-appearing gallbladder. The c ommon bile duct is normal in caliber measuring 3 mm. Sonographic Cowan sign was reported as negative by the home visit field care manager. There is normal renal contour and echogenicity bilaterally. The right kidney irina sures 9.4 x 3.6 x 5.0 cm and the left 9.2 x 5.5 x 4.0 cm. There are no focal renal lesions identifie d. There is no hydronephrosis. Normal spleen measuring 7.0 cm maximal length. IMPRESSION: 1. Cholelithiasis. Otherwise normal abdominal ultrasound. Reviewed, dictated and finalized at location A.
== END 2023-07-15 08:23 ==
LOC: MICIMG 08:23
PROVIDERS: PCP Emergency Medicine; Visit Provider Emergency Medicine
DX: K80.20 Calculus of gallbladder without cholecystitis without obstruction (principal)
CPT/HCPCS: 76700

== ENCOUNTER 2023-07-29 10:10 | Outpatient (CLI) | payer BC, SELFPAY ==
--- NOTE | ~2023-07-29 | NM_ITS ---
EXAMINATION: NM hepatobiliary wo pharm DATE: 07/29/2023 13:09 INDICATION: Upper abdominal pain COMPARISON: None. TECHNIQUE: 4.8 mCi Tc-99m mebrofenin (Choletec) was administered intravenously. Scintigraphic images of the abdomen were obtained for one hour. At the 1 hour time point, the patient drank 8 oz Ensure, and imaging was continued for 60 minutes. Gallbladder ejection fraction was calculated by the technol ogist. FINDINGS: There is normal clearance of radiotracer from the blood pool. There is homogeneous tracer u ptake by the liver. Activity progresses to the bowel and gallbladder. The gallbladder ejection fract ion (GBEF) is 36%. Note that with this technique, normal GBEF >= 33%. IMPRESSION: 1. Normal hepatobiliary scan. Reviewed, dictated and finalized at location A.
== END 2023-07-29 10:11 | disposition home or self-care (01) ==
PROVIDERS: PCP Emergency Medicine; Visit Provider Emergency Medicine
DX: R10.10 Upper abdominal pain, unspecified (principal)
CPT/HCPCS: 78226; A9537

== ENCOUNTER 2023-08-28 09:52 | Outpatient (CLI) | payer BC, SELFPAY ==
--- NOTE | 2023-08-28 10:22 | EST_ITS ---
Patient Info Name: Elvia Camacho Age: 52 years : 1970 Gender: Female Ht: 60 in Wt: 162 lbs BSA: 1.79 m2 HR: 67 bpm BP: 136 / 81 mmHg Heart Rhythm: Sinus Rhythm Exam Date: 08/28/2023 10:33 AM Exam Location: Echo Lab Patient Status: Outpatient Admit Date: 08/28/2023 Staff Ordering Physician: Neo Sharma DO Attending Provider: Neo Sharma DO Exercise Technologist: Dilcia Yancey CT Exercise Physician: Neo Sharma DO Exam Type: CA stress test treadmill Study Info Indications R07.89 - Other chest pain A treadmill exercise stress test was performed. Summary 1. 1. Negative Jeff exercise stress test for ischemic ST changes by ECG criteria. 2. 2. Good functional capacity, achieving 8.6 METs of workload. 3. 3. Hypertensive response to exercise. 4. 4. Appropriate HR response to exercise. 5. 5. Appropriate HR recovery at 1 minute post exercise. 6. 6. No imaging with stress testing. 7. 7. Patient informed of the above results. Protocol: Jeff Stress ECG Details Stage: REST Duration (min): 1 min : 34 sec Speed (mph): 0.0 Grade (%): 0 HR (bpm): 70 SBP (mmHg): 136 DBP (mmHg): 81 METS: --- Stage: REST Duration (min): 11 min : 51 sec Speed (mph): 0.0 Grade (%): 0 HR (bpm): 80 SBP (mmHg): 136 DBP (mmHg): 81 METS: --- Stage: STAGE 1 Duration (min): 1 min : 0 sec Speed (mph): 1.7 Grade (%): 10 HR (bpm): 102 SBP (mmHg): 136 DBP (mmHg): 81 METS: --- Stage: STAGE 1 Duration (min): 2 min : 0 sec Speed (mph): 1.7 Grade (%): 10 HR (bpm): 108 SBP (mmHg): 136 DBP (mmHg): 81 METS: --- Stage: STAGE 1 Duration (min): 3 min : 0 sec Speed (mph): 1.7 Grade (%): 10 HR (bpm): 114 SBP (mmHg): 136 DBP (mmHg): 81 METS: --- Stage: STAGE 2 Duration (min): 1 min : 0 sec Speed (mph): 2.5 Grade (%): 12 HR (bpm): 122 SBP (mmHg): 168 DBP (mmHg): 79 METS: --- Stage: STAGE 2 Duration (min): 2 min : 0 sec Speed (mph): 2.5 Grade (%): 12 HR (bpm): 122 SBP (mmHg): 184 DBP (mmHg): 71 METS: --- Stage: STAGE 2 Duration (min): 3 min : 0 sec Speed (mph): 2.5 Grade (%): 12 HR (bpm): 130 SBP (mmHg): 251 DBP (mmHg): 54 METS: --- Stage: STAGE 3 Duration (min): 0 min : 53 sec Speed (mph): 3.4 Grade (%): 14 HR (bpm): 141 SBP (mmHg): 256 DBP (mmHg): 49 METS: --- Stage: RECOVERY Duration (min): 0 min : 6 sec Speed (mph): 1.5 Grade (%): 0 HR (bpm): 143 SBP (mmHg): 256 DBP (mmHg): 49 METS: --- Stage: RECOVERY Duration (min): 1 min : 6 sec Speed (mph): 0.0 Grade (%): 0 HR (bpm): 111 SBP (mmHg): 256 DBP (mmHg): 49 METS: --- Stage: RECOVERY Duration (min): 2 min : 6 sec Speed (mph): 0.0 Grade (%): 0 HR (bpm): 99 SBP (mmHg): 203 DBP (mmHg): 61 METS: --- Stage: RECOVERY Duration (min): 3 min : 6 sec Speed (mph): 0.0 Grade (%): 0 HR (bpm): 100 SBP
== END 2023-08-28 09:53 | disposition home or self-care (01) ==
LOC: ANHCARD 09:55
PROVIDERS: PCP Emergency Medicine; Visit Provider Internal Medicine Cardiovascular Disease
DX: R07.9 Chest pain, unspecified (principal)
CPT/HCPCS: 93017; J2785

== ENCOUNTER 2023-10-31 01:20 | Day surgery (SDC) | payer BC, SELFPAY ==
[2023-10-11 14:09] VITALS: BMI 32.2
[2023-10-31 09:23] VITALS: BP 148/71; PULSE 68; RESP 18; TEMP 36.1; O2SAT 100
[2023-10-31] MEDS: LACTATED RINGERS 1,000 ML 150 ML IV CONT (09:30)
--- NOTE | 2023-10-31 09:39 | P.PNAN_ITS ---
Anes - Initial Pre Proc Eval Procedure: Operation Date: 10/31/23 11:00 Proposed Procedures p Esophagogastroduodenoscopy - Steven Srivastava MD Date/Time: 10/31/23 09:39 Surgeon: Steven Srivastava MD Pre Op Diagnosis: GERD, LUQ Pain Patient Data Age: 53 Gender: F Height: 1.52 m Weight: 76.9 kg Last Vital Signs Temp 97 F L 10/31/23 09:23 Pulse 68 10/31/23 09:23 Resp 18 10/31/23 09:23 BP 148/71 H 10/31/23 09:23 Pulse Ox 100 10/31/23 09:23 O2 Del Method Room Air 10/31/23 09:23 Allergies Allergy/AdvReac Type Severity Reaction Status Date / Time erythromycin base Allergy Mild Unknown Verified 10/31/23 09:20 Penicillins Allergy Mild Unknown Verified 10/31/23 09:20 Home Medications Medication Instructions Recorded Confirmed Type aspirin 81 mg tablet,delayed 81 mg PO DAILY 05/20/19 10/31/23 History release pantoprazole 40 mg tablet,delayed 1 tablet PO DAILY 08/29/21 10/31/23 History release Patient hx anesthesia problems: none Family hx anesthesia problems: none Results Review: All pre-operative results and documents have been reviewed as part of the pre- operative evaluation. [facility] Past Medical History Medical History History of hyperlipidemia History of hypertension Surgical History Surgical History History of appendectomy History of hysteroscopy History of thyroidectomy History of tubal ligation Social History Social History Smoking status: Never smoker Substance use type: does not use Living arrangements: alone Gender identity (if verbalized by the patient): Female Anes - Eval Final PreProcedure Day of Procedure 10/31/23 09:39 Patient weight: obese Heart: regular rate and rhythm Lungs: clear to auscultation Airway: Mallampati scale class II Neurological: alert and oriented Last oral intake: >/= 8 hours ASA classification: II Emergent: no Anesthetic plan: proceed Anesthesia type and monitoring: general GIVS and standard monitoring Results Review: All pre-operative results and documents have been reviewed as part of the pre- operative evaluation. Informed Consent: The patient's anesthetic plan and its attendant risks and benefits were discussed with the patient/family/POA. Questions were solicited and answers provided to the satisfaction of the patient/family/POA.
--- NOTE | 2023-10-31 09:49 | PM.HPGS ---
History of Present Illness History of Present Illness Consent: Risks, benefits, and alternatives have been discussed and questions answered. Patient agrees to proceed with procedure. Chief complaint: GERD, LUQ Pain Narrative: Elvia Camacho is a 53 year old female with intermittent luq pain, on pantoprazole prn, ultrasound showed cholelithiasis Review of Systems Review of Systems: All systems reviewed & are unremarkable except as noted in HPI and below PMFSH Past Medical History Medical History (Updated 10/31/23 @ 09:49 by Steven Srivastava MD) Acute LUQ pain History of hyperlipidemia History of hypertension Surgical History Surgical History History of appendectomy History of hysteroscopy History of thyroidectomy History of tubal ligation Social History Social History Smoking status: Never smoker Substance use type: does not use Living arrangements: alone Gender identity (if verbalized by the patient): Female Meds Home Medications and Allergies Home Medications Medication Instructions Recorded Confirmed Type aspirin 81 mg tablet,delayed 81 mg PO DAILY 05/20/19 10/31/23 History release pantoprazole 40 mg tablet,delayed 1 tablet PO DAILY 08/29/21 10/31/23 History release Allergies Allergy/AdvReac Type Severity Reaction Status Date / Time erythromycin base Allergy Mild Unknown Verified 10/31/23 09:20 Penicillins Allergy Mild Unknown Verified 10/31/23 09:20 Vital Signs Vital Signs - 24 hr 10/31/23 09:23 Temperature 97 F L Pulse Rate 68 Respiratory Rate 18 Blood Pressure 148/71 H Pulse Oximetry 100 Oxygen Delivery Room Air Exam Const: General: comfortable and no acute distress HENMT: Face/Nose/Sinus: Normal nares present Eyes: General: appearance normal, both eyes and all related structures Neck: Neck: no JVD Resp: Auscultation: clear to auscultation bilaterally Cardio: Rate: regular rate Rhythm: regular rhythm GI: Inspection: non-distended GI Palp: Yes Soft to palpation Skin: General skin exam: normal color Neuro: General: gait normal Speech: normal speech Extrem: General: normal to inspection Psych: Mental Status: mental status grossly normal Assessment and Plan Assessment and plan (1) Acute LUQ pain: Code(s): R10.12 - Left upper quadrant pain Status: Acute Assessment and Plan: egd
[2023-10-31 09:59] VITALS: BP 119/58; PULSE 72; RESP 20; O2SAT 98
[2023-10-31 10:09] VITALS: BP 107/66; PULSE 66; RESP 19; O2SAT 97
[2023-10-31 10:19] VITALS: BP 122/69; PULSE 60; RESP 20; O2SAT 98
== END 2023-10-31 10:32 | disposition home or self-care (01) ==
PROVIDERS: PCP Emergency Medicine; Visit Provider Internal Medicine Gastroenterology
PROC: 0DJ08ZZ Inspection of Upper Intestinal Tract, Via Natural or Artificial Opening Endoscopic (ICD-10-PCS; CPT 43235; principal; 2023-10-31 11:00)
DX: K21.9 Gastro-esophageal reflux disease without esophagitis (principal); I10 Essential (primary) hypertension; E78.5 Hyperlipidemia, unspecified; E66.9 Obesity, unspecified; Z68.33 Body mass index [BMI] 33.0-33.9, adult; Z79.82 Long term (current) use of aspirin; Z98.890 Other specified postprocedural states; Z98.51 Tubal ligation status
CPT/HCPCS: 43239; 88305; J2704; J7120

== ENCOUNTER 2024-05-26 08:51 | Outpatient (CLI) | payer BC, SELFPAY ==
--- OUTSIDE RECORDS SUMMARY | 2024-05-26 09:18 | XMS_ITS | Clinical Summary ---
Author Organization [facility] Address [address] [place] [address] Care Team Providers Care Automation And Controls Instructor Name Role Phone Wisam Castellano MD Primary Care Provider [phone] Allergies Active Allergy Reactions Criticality Noted Date Comments Erythromycin Rash Medium 10/07/2017 Penicillins Rash Medium 10/07/2017 Medications acetaminophen-code ine (TYLENOL with CODEINE #3) 300-30 mg per tablet 0 8 Active bisoprolol-hydroCH LOROthiazide (ZIAC) 5-6.25 mg per tabletIndications: hypertension 8 Active clindamycin (CLEOCIN) 150 mg capsule 8 Active fluticasone (FLONASE) 50 mcg/actuation nasal spray 8 Active meclizine (ANTIVERT) 25 mg tablet TK 1 T PO TID 0 8 Active phentermine (ADIPEX-P) 37.5 mg tablet 0 8 Active simvastatin (ZOCOR) 20 mg tablet 8 Active loratadine (CLARITIN) 10 mg tablet Take 10 mg by mouth daily. Active meclizine (ANTIVERT) 25 mg tablet Take 1 tablet (25 mg total) by mouth 3 (three) times a day as needed for dizziness 30 tablet 4 Active ondansetron ODT (ZOFRAN-ODT) 4 mg disintegrating tablet Take 1 tablet (4 mg total) by mouth every 8 (eight) hours as needed for nausea or vomiting 20 tablet 4 Active Social History Tobacco Use Types Packs/Day Years Used Date Smoking Tobacco: Never Smokeless Tobacco: Never Personal Safety Answer Date Recorded Have you ever been in or are you currently in a harmful physical or emotional relationship or is someone making you feel afraid or unsafe? Denies 03/24/2023 Comments No Sex and Gender Information Value Date Recorded Sex Assigned at Not on file Legal Sex Female 7:15 AM HISTORIC SITES REGISTRAR Gender Identity Not on file Sexual Orientation Not on file Obstetrics History Para Term AB IAB SAB Ectopic Multiple Livin g Live Births 4 3 3 Date Outcome GA Total Labor Labor/2nd/3rd Weight Sex Type Anes PTL Kiersten A1 A5 Name Clin Term Term Term Last Filed Vital Signs Vital Sign Reading Time Taken Comments Blood Pressure 131/71 03/24/2023 9:04 PM HISTORIC SITES REGISTRAR Pulse 79 03/24/2023 9:04 PM HISTORIC SITES REGISTRAR Temperature 36.7 C (98.1 F) 03/24/2023 6:46 PM HISTORIC SITES REGISTRAR Respiratory Rate 20 03/24/2023 6:46 PM HISTORIC SITES REGISTRAR Oxygen Saturation 99% 03/24/2023 9:04 PM HISTORIC SITES REGISTRAR Inhaled Oxygen Concentration - - Weight 75.3 kg (166 lb 0.1 oz) 03/24/2023 6:46 P M HISTORIC SITES REGISTRAR Height 152.4 cm (5') 10/07/2017 8:06 AM CDT Body Mass Index 32.42 10/07/2017 8:06 AM CDT Plan of Treatment Health Maintenance Due Date Last Done Comments Cervical Cancer Screening 1970 Colon Cancer Screening-Colonoscopy 1970 Depression Screening 1970 Hepatitis C Screening 1970 Hepatitis B Screening 1986 Regular Well Visit/Exam 18-64 1986 Zoster Vaccine (1 of 2) 2018 Influenza Vaccine (#1) 2023 , 01/03/2019, 01/20/2018, Additional history exists DTaP/Tdap/Td Vaccine (2 - Td or Tdap) 09/07/2024 09/07/2014 Breast Cancer Screening-Mammogram 01/23/2025 01/24/2024, 01/04/2023, 01/03/2022, Additional history exists Pneumococcal vaccine <65 Aged Out No longer eligible based on patient's age to complete this topic Procedures Procedure Name Priority Date/Time Associated Diagnosis Comments SCREENING MAMMOGRAM BILATERAL W RON Schedule Routine, Read Routine (OP Routine) 01/24/2024 2:51 PM HISTORIC SITES REGISTRAR Screening mammogram, encounter for from Last 3 Months or Most Recently Relevant to Health Maintenance Results * Screening Mammogram Bilateral W Ron (01/24/2024 2:51 PM HISTORIC SITES REGISTRAR) Anatomical Region Laterality Modality Breast Bilateral Mammography Impressions 01/24/2024 3:49 PM HISTORIC SITES REGISTRAR BI-RADS ATLAS category (overall): 1 - Negative There is no mammographic evidence of malignancy. A 1 year screening mammogram is recommended. The patient has been or will be contacted. We recommend annual screening mammography for women at average risk of breast cancer beginning at age 40, based on guidelines of the [employer] (ACR Practice Parameter for the Performance of Screening and Diagnostic Mammography) and [employer]. For women with and elevated risk of breast cancer, please refer to the ACR Practice Parameter for specific screening recommendations. The patient will be entered into a reminder system with a target due date of 1 year for her next screening exam. Narrative 01/24/2024 3:49 PM HISTORIC SITES REGISTRAR Screening Mammogram Bilateral W Ron: 01/24/24 The study was acquired using full field digital technology and interpreted from soft copy. 2D digital mammographic views, as well as 3D digital tomosynthesis were performed in the CC and MLO projections. CLINICAL: Screening mammogram, encounter for. No relevant medical history has been documented for this patient. No known family history of breast cancer. COMPARISONS: 01/04/2023 Screening Mammogram Bilateral W Ron 01/03/2022 Screening Mammogram Bilateral W Ron 10/12/2020 Screening Mammogram Bilateral W Ron 10/12/2019 Screening Mammogram Bilateral W Ron 07/07/2018 Screening Mammogram Bilateral W Ron 07/05/2017 Screening Mammogram Bilateral W Ron 07/04/2016 Screening Mammogram Bilateral W Ron 07/04/2015 Screening Mammogram Bilateral W Ron 07/02/2014 Screening Mammogram Bilateral W Ron 07/01/2013 Screening Mammogram 2D Bilateral 06/23/2012 Screening Mammogram 2D Bilateral BREAST TISSUE: The breasts are almost entirely fatty. FINDINGS: No suspicious masses, suspicious calcifications, or other suspicious findings are seen within either breast. There has been no suspicious change. us Self Screening Mammogram IMG MAMMO PROCEDURES Fi nal Result from Last 3 Months or Most Recently Relevant to Health Maintenance Insurance [facility] [employer] [place] [employer] [place] Care Teams Automation And Controls Instructor Relationship Specialty Start Date End Date Wisam Castellano MD [address] [place] [facility] [place] [address] PCP - General Family Medicine 12/27/21
--- OUTSIDE RECORDS SUMMARY | 2024-05-26 09:18 | XMS_ITS | Referral Summary ---
Author Organization [facility] Address [address] [place] [address] Care Team Providers Care Nephrology Social Worker Name Role Phone Wisam Castellano MD Primary Care Provider [phone] Allergies Active Allergy Reactions Criticality Noted Date [...] on file Legal Sex Female 7:15 AM CONSTRUCTION EQUIPMENT OPERATOR Gender Identity Not on file Sexual Orientation Not on file Last Filed Vital Signs Vital Sign Reading Time Taken Comments Blood Pressure 131/71 03/24/2023 9:04 PM CONSTRUCTION EQUIPMENT OPERATOR Pulse 79 03/24/2023 9:04 PM CONSTRUCTION EQUIPMENT OPERATOR Temperature 36.7 C (98.1 F) 03/24/2023 6:46 PM CONSTRUCTION EQUIPMENT OPERATOR Respiratory Rate 20 03/24/2023 6:46 PM CONSTRUCTION EQUIPMENT OPERATOR Oxygen Saturation 99% 03/24/2023 9:04 PM CONSTRUCTION EQUIPMENT OPERATOR Inhaled Oxygen Concentration - - Weight 75.3 kg (166 lb 0.1 oz) 03/24/2023 6:46 P M CONSTRUCTION EQUIPMENT OPERATOR Height 152.4 cm (5') 10/07/2017 8:06 AM CDT Body Mass Index 32.42 10/07/2017 8:06 AM CDT Plan of Treatment Not on file Procedures Procedure Name Priority Date/Time Associated Diagnosis Comments SCREENING MAMMOGRAM BILATERAL W RON Schedule Routine, Read Routine (OP Routine) 01/24/2024 2:51 PM CONSTRUCTION EQUIPMENT OPERATOR Screening mammogram, encounter for from Last 3 Months or Most Recently Relevant to Health Maintenance Results * Screening Mammogram Bilateral W Ron (01/24/2024 2:51 PM CONSTRUCTION EQUIPMENT OPERATOR) Anatomical Region Laterality Modality Breast Bilateral Mammography Impressions 01/24/2024 3:49 PM CONSTRUCTION EQUIPMENT OPERATOR BI-RADS ATLAS category (overall): 1 - Negative There is no mammographic evidence of malignancy. A 1 year screening mammogram is recommended. The patient has been or will be contacted. We recommend annual screening mammography for women at average risk of breast cancer beginning at age 40, based on guidelines of the [employer] (ACR Practice Parameter for the Performance of Screening and Diagnostic Mammography) and [employer]. For women with and elevated risk of breast cancer, please refer to the ACR Practice Parameter for specific screening recommendations. The patient will be entered into a reminder system with a target due date of 1 year for her next screening exam. Narrative 01/24/2024 3:49 PM CONSTRUCTION EQUIPMENT OPERATOR Screening Mammogram Bilateral W Ron: 01/24/24 The [...] Most Recently Relevant to Health Maintenance Insurance [facility] Member Subscriber Plan / Payer (Ef fective 2017-Present) Name:Elvia Camacho Relation to Subscriber:Self Name:Elvia Camacho Payer ID:[id number] (NAIC) Type:[facility] Address: [facility] [id number] [address] [facility] Care Teams Nephrology Social Worker Relationship Specialty Start Date End Date Wisam Castellano MD [facility] [place] [address] PCP - General Family Medicine 12/27/21
--- OUTSIDE RECORDS SUMMARY | 2024-05-26 09:18 | XMS_ITS | Clinical Summary ---
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 09/07/2014 Active fluticasone propionate 50 MCG/ACT nasal sprayIndications :Dysfunction of Eustachian tube, unspecified laterality 2 sprays by Nasal route daily. 48 mL 3 10/01/2018 Active Active Problems Problem Noted Date Diagnosed Date URTI (acute upper respiratory infection) 018 Dizziness 01/18/2017 Dysfunction of Eustachian tube, unspecified late rality 01/18/2017 Impaired fasting glucose 09/20/2015 Gastroesophageal reflux disease without esophagi tis 08/30/2015 Dyslipidemia 09/07/2014 Essential hypertension 03/13/2012 Resolved Problems Problem Noted Date Diagnosed Date Resolved Date Encounter for preventive health examination 03/13/2012 11/20/2019 Immunizations Name Administration Dates Next Due Fluzone 6 Months+ Quad (0.5 mL Prefilled Syringe ) 01/03/2019 Tdap (Generic) 09/07/2014 Family History Medical History Relation Comments Hypertension Other Obesity Other Relation Status Comments Other Social History Tobacco Use Types Packs/Day Years Used Date Smoking Tobacco: Never Smokeless Tobacco: Never Alcohol Use Standard Drinks/Week Comments Yes 0 (1 standard drink = 0.6 oz pur e alcohol) daily wine/social Comments No Sex and Gender Information Value Date Recorded Sex Assigned at Not on file Legal Sex Female 9:51 AM CDT Gender Identity Not on file Sexual Orientation Not on file Last Filed Vital Signs Vital Sign Reading Time Taken Comments Blood Pressure 173/101 03/13/2023 6:14 AM FIRER HELPER Pulse 94 03/13/2023 6:14 AM FIRER HELPER Temperature 36.4 C (97.5 F) 03/13/2023 6:14 AM FIRER HELPER Respiratory Rate 18 03/13/2023 6:14 AM FIRER HELPER Oxygen Saturation 100% 03/13/2023 6:14 AM FIRER HELPER Inhaled Oxygen Concentration - - Weight 77.7 kg (171 lb 4.8 oz) 03/13/2023 6:14 A M FIRER HELPER Height 152.4 cm (5') 03/13/2023 6:14 AM FIRER HELPER Body Mass Index 33.45 03/13/2023 6:14 AM FIRER HELPER Plan of Treatment Health Maintenance Due Date Last Done Comments Cervical Cancer Screening Pap Smear (Age 30 to 64) Every 3 Years 1968 Colorectal Cancer Screening Colonoscopy (10 Years) 1968 Hepatitis C 1986 Hepatitis B Vaccines (1 of 3 - 19+ 3-dose series) 09/27/1987 Cervical Cancer Screening Pap with HPV Testing (Age 30 to 64) Every 5 Years 1998 Cervical Cancer Screening with HPV 1998 Mammogram Screening 2008 Zoster Vaccines (1 of 2) 2018 Annual Physical 10/02/2019 10/01/2018 COVID-19 Vaccine ( - season) 2023 03/06/2021, 07/20/2020, 06/29/2020 Influenza Adult (#1) 2023 12/17/2020, 01/18/2020, 01/03/2019, Additional history exists DTaP, Tdap and Td Vaccines (2 - Td or Tdap) 09/07/2024 09/07/2014 Meningococcal B Vaccine Aged Out No l onger eligible based on patient's age to complete this topic Meningococcal Vaccine Aged Out No dontrell omero eligible based on patient's age to complete this topic Pneumococcal Vaccine: Pediatrics (0 to 5 Years) and At-Risk Patients (6 to 64 Years) Aged Out No longer eligible based on patient's age to complete this topic RSV Immunizations Under 20 Months Aged Out No longer eligible based on patient's age to complete this topic Insurance Care Teams Brazing Machine Operator Helper Relationship Specialty Start Date End Date Wisam Castellano MD [address] [place] [id number] PCP - General FAMILY PRACTICE 03/13/23
--- OUTSIDE RECORDS SUMMARY | 2024-05-26 09:18 | XMS_ITS | Clinical Summary ---
Author Organization [facility] Address [address] [place] [address] [place] [address] Care Team Providers Care Psychologist Counseling Name Role Phone Unavailable Primary Care Provider Unavailabl e Allergies Active Allergy Reactions Criticality Noted Date Comments Erythromycin Unknown 03/07/2022 Penicillins Unknown 03/07/2022 Medications Sodium Fluoride-Pot Nitrate (PreviDent 5000 Sensitive) 1.1-5 % Paste USE TO BRUSH FOR 2 MINUTES AT BEDTIME DIRECTED 100 mL 2 03/12/2022 8:57 AM DEMONSTRATOR SEWING TECHNIQUES 03/07/2022 Active Social History Tobacco Use Types Packs/Day Years Used Date Smoking Tobacco: Never Assessed Comments Unknown Sex and Gender Information Value Date Recorded Sex Assigned at Not on file Legal Sex Female 11:21 AM DEMONSTRATOR SEWING TECHNIQUES Gender Identity Not on file Sexual Orientation Not on file Plan of Treatment Health Maintenance Due Date Last Done Comments DTAP/TDAP/TD VACCINES (1 - Tdap) 09/27/1987 HEPATITIS B VACCINES (1 of 3 - 19+ 3-dose series) 09/27/1987 CERVICAL CANCER SCREENING 1998 BREAST CANCER SCREENING 2008 COLORECTAL SCREENING 2013 Colorectal Cancer Screening 2013 FIT-DNA Q 3 years 2013 FIT/FOBT Q 1 year 2013 Flex Sig/CT Colonography Q 5 years 2013 ZOSTER VACCINE (1 of 2) 2018 INFLUENZA VACCINE (#1) 2023 PNEUMOCOCCAL VACCINE 0-49 YEARS Aged Out No longer eligible based on patient's age to complete this topic Insurance RX [employer] Member Subscriber Plan / Payer (Ef fective 2022-Present) Name:Amanda Camachoricia Relation to Subscriber:Self Name:Amanda Camachoricia Subscriber ID:Not on file Payer ID:Not on file Type:RX Commercial Address: [address]
--- NOTE | 2024-05-26 11:00 | NEURO_ITS ---
Impression: # Complains of right hand numbness. Non-diabetic. ? # Mild right Carpal Tunnel Syndrome. # No ulnar neuropathy. ? # Needle/EMG exam mildly neurogenic in right APB. Nerve Conduction Studies Anti Sensory Summary Table ?Stim Site NR Peak (ms) P-T Amp (?V) Site1 Site2 Delta-P (ms) Dist (cm) Klaus (m/s) Right Median Anti Sensory (2-3nd Digit) Wrist ? 4.0 35.4 Wrist 2-3nd Digit 4.0 14.0 35 Wrist ? 4.8 30.0 Wrist 2-3nd Digit 4.0 14.0 35 Right Radial Anti Sensory (Base 1st Digit) Wrist ? 1.7 50.7 Wrist Base 1st Digit 1.7 0.0 Right Ulnar Anti Sensory (5th Digit) Wrist ? 2.8 26.4 Wrist 5th Digit 2.8 14.0 50 Motor Summary Table ?Stim Site NR Onset (ms) O-P Amp (mV) Site1 Site2 Delta-0 (ms) Dist (cm) Klaus (m/s) Right Median Motor (Abd Poll Brev) Wrist ? 4.4 4.7 Elbow Wrist 4.2 24.0 57 Elbow ? 8.6 2.3 Right Ulnar Motor (Abd Dig Minimi) Wrist ? 2.4 7.2 A Elbow Wrist 4.6 26.0 57 A Elbow ? 7.0 7.1 F Wave Studies ?NR F-Lat (ms) L-R F-Lat (ms) Right Median (Mrkrs) (Abd Poll Brev) ? 26.33 Right Ulnar (Mrkrs) (Abd Dig Min) ? 25.18 EMG ?Side Muscle Nerve Root Ins Act Fibs Amp Dur Recrt Comment Right 1stDorInt Ulnar C8-T1 Nml Nml Nml Nml Nml Right Ext Indicis Radial (Post Int) C7-8 Nml Nml Nml Nml Nml Right Ext Digitorum Radial (Post Int) C7-8 Nml Nml Nml Nml Nml Right BrachioRad Radial C5-6 Nml Nml Nml Nml Nml Right PronatorTeres Median C6-7 Nml Nml Nml Nml Nml Right Abd Poll Brev Median C8-T1 Nml Nml Incr >12ms +1 Right ABD Dig Min Ulnar C8-T1 Nml Nml Nml Nml Nml Right Abd Poll Long Radial (Post Int) C7-8 Nml Nml Nml Nml Nml MTDD
== END 2024-05-26 08:52 | disposition home or self-care (01) ==
PROVIDERS: PCP Emergency Medicine; Visit Provider Emergency Medicine
DX: G56.01 Carpal tunnel syndrome, right upper limb (principal)
CPT/HCPCS: 95886; 95909

== ENCOUNTER 2024-11-29 16:19 | Emergency (ER) | payer BC, SELFPAY ==
--- NOTE | ~2024-11-29 | US_ITS ---
EXAMINATION: US venous doppler LE , 11/29/2024 17:49 CDT HISTORY: left calf pain Comparison: None Technique: Carcamo-scale and color Doppler images were attempted of the lower saphenofemoral junction, common femoral vein,superficial femoral vein, proximal deep femoral vein, proximal deep femoral vein, popliteal vein and posterior tibial veins. Findings: Deep Venous System:Normal flow, augmentation and compressibility. No echogenic thrombus identified. The contralateral saphenofemoral junction appears unremarkable. Superficial Venous SystemNo superficial thrombophlebitis. Soft tissues: Soft tissues are unremarkable. Impression: Negative for DVT. Reviewed, dictated and finalized at location A. Impression: Negative for DVT.
--- NOTE | ~2024-11-29 | XR_ITS ---
EXAMINATION: XR ankle LT min 3V, 11/29/2024 17:00 CDT HISTORY: Nontraumatic pain COMPARISON: No comparisons available. Findings: No acute fracture or malalignment. No significant degenerative changes. Soft tissues unremarkable. Impression: No acute fracture or malalignment. Reviewed, dictated and finalized at location A. Impression: No acute fracture or malalignment.
--- NOTE | ~2024-11-29 | XR_ITS ---
EXAMINATION: XR foot LT min 3V, 11/29/2024 17:00 CDT HISTORY: Nontraumatic pain COMPARISON: No comparisons available. Findings: No acute fracture or malalignment. No significant degenerative changes. Soft tissues unremarkable. Impression: No acute fracture or malalignment. Reviewed, dictated and finalized at location A. Impression: No acute fracture or malalignment.
[2024-11-29 16:21] VITALS: BP 148/73; PULSE 76; RESP 16; TEMP 36.4; O2SAT 100
--- NOTE | 2024-11-29 16:38 | ED_ITS ---
HPI - Extremity Problem General Chief complaint: Extremity Problem,Nontraumatic Stated complaint: L ankle/foot pain Time Seen by Provider: 11/29/24 16:26 Source: patient Mode of arrival: ambulatory Limitations: no limitations History of Present Illness HPI Narrative: 54 years old female came to the ED with pain/soreness left lower leg anteriorly and posteriorly for 1 week, getting worse today radiating to left foot dorsally and left ankle medially. Patient denies any recent trauma. Patient wears high heels, had a dancing green party last night while wearing high heels. She denies any chest pain or shortness of breath Related Data Home Medications ?Medication ?Instructions ?Recorded ?Confirmed ?Last Taken ?Type aspirin 81 mg tablet,delayed 81 mg PO DAILY 05/20/19 0 08/13/24 10/30/23 History release pantoprazole 40 mg tablet,delayed 1 tablet PO DAILY 08/13/24 10/30/23 History release bisoprolol 5 1 tablet PO DAILY 01/31/24 0 08/13/24 Unknown History mg-hydrochlorothiazide 6.25 mg tablet Allergies Allergy/AdvReac Type Severity Reaction Status Date / Time erythromycin base Allergy Mild Unknown Verified 11/29/24 16:21 Penicillins Allergy Mild Unknown Verified 11/29/24 16:21 Review of Systems Review of Systems: All systems reviewed & are unremarkable except as noted in HPI and below PMFSH Past Medical History Medical History Acute LUQ pain History of hyperlipidemia History of hypertension Surgical History Surgical History History of hysteroscopy History of thyroidectomy History of appendectomy History of tubal ligation Social History Social History Smoking status: Never smoker Substance use type: does not use Do You Feel Safe in your Home?: Yes Lack of Transportation: No Lack of Food: Never True Current Housing: I Have Housing Concerned About Future Housing: No Difficulty Paying Gas/Electric Bills: No Difficulty Paying for Meds: No Currently Unemployed: No Education: Associate Degree Difficulty w/ Childcare or Family Care: No Living arrangements: alone Gender identity (if verbalized by the patient): Female Exam Narrative: General appearance: Well-developed, well-nourished Skin: Normal color Vascular: Normal peripheral pulses, normal capillary refill. Musculoskeletal: Left lower extremity exam showed no localized tenderness, no bruises, no swelling, no rash no varicose vein Neurologic: Alert and oriented ?3, EXPERIM[employer] is normal as tested, no gross motor deficit Course Vital Signs Vital signs: Vital Signs Temperature 36.4 C 11/29/24 16:21 Pulse Rate 76 11/29/24 16:21 Respiratory Rate 16 11/29/24 16:21 Blood Pressure 148/73 H 11/29/24 16:21 Pulse Oximetry 100 11/29/24 16:21 Oxygen Delivery Room Air 11/29/24 16:21 Temperature 36.4 C 11/29/24 16:21 Pulse Rate 76 11/29/24 16:21 Respiratory Rate 16 11/29/24 16:21 Blood Pressure 148/73 H 11/29/24 16:21 Pulse Oximetry 100 11/29/24 16:21 Oxygen Delivery Room Air 11/29/24 16:21 MDM - Extremity (Nontraumatic) Imaging Data Radiologist's impression: Impressions Ankle X-Ray 11/29/24 17:26 Impression: No acute fracture or malalignment. Venous Doppler Study 11/29/24 17:54 Impression: Negative for DVT. Foot X-Ray 11/29/24 18:36 Impression: No acute fracture or malalignment. Discharge Plan Discharge Clinical Impression: Acute leg pain Patient Disposition: Home Condition: Stable Instructions: Leg Pain (ED) Additional Instructions: Return if symptoms are worsening , call your family physician for appointment, take Tylenol, ibuprofen as as needed for aches and pain, continue home medications. Patient Language: Indonesian Prescriptions: No Action bisoprolol-hydrochlorothiazide 5-6.25 mg tablet 1 tablet PO DAILY aspirin 81 mg Tablet,Delayed Release (Dr/Ec) 81 mg PO DAILY pantoprazole 40 mg tablet,delayed release (DR/EC) 1 tablet PO DAILY atorvastatin [Lipitor] 10 mg tablet 10 mg PO DAILY Qty: 30 5RF Follow-up/Referrals: Wisam Castellano MD [Primary Care Provider, Family Practice]
== END 2024-11-29 19:00 | disposition home or self-care (01) ==
PROVIDERS: Emergency Provider Emergency Medicine; PCP Emergency Medicine
DX: M79.662 Pain in left lower leg (principal); I10 Essential (primary) hypertension; E78.5 Hyperlipidemia, unspecified
CPT/HCPCS: 73610; 73630; 93971; 99284

== ENCOUNTER 2024-12-17 10:37 | Emergency (ER) | payer BC, SELFPAY ==
[2024-12-17] VITALS (12 sets, daily range): BP systolic 124–149; BP diastolic 65–86; PULSE 49–65; RESP 12–24; TEMP 36.7; O2SAT 93–100
--- NOTE | ~2024-12-17 | XR_ITS ---
Examination: XR chest 2V Clinical History: RT SIDED CP x2 DAYS Comparison: 07/11/2023 Technique: PA and Lateral Findings: Cardiomediastinal silhouette normal size and configuration. Lungs clear. Mild hyperinflation. No acute bony abnormality. IMPRESSION: 1. No acute cardiopulmonary findings. Reviewed, dictated and finalized at location R.
--- NOTE | 2024-12-17 10:38 | ECG_ITS ---
Test Date: 2024-12-17 10:59:04 Measurements Intervals [place] Rate: 116 P: 64 AR: 155 QRS: 24 QRSD: 85 T: 77 QT: 340 QTc: 473 Interpretive Statements SINUS TACHYCARDIA CONSIDER ANTERIOR INFARCT, AGE INDETERMINATE BORDERLINE ST-T WAVE ABNORMALITY- HIGH LATERAL LEADS BASELINE ARTIFACT- I, II, III, AVR, AVL, AVF, V1-V6 ABNORMAL ECG No previous ECG available for comparison Electronically Signed On 12-17-2024 11:11:45 CDT by Neo Sharma D.O.
--- NOTE | 2024-12-17 11:49 | ECG_ITS ---
Test Date: 2024-12-17 11:49:22 Measurements Intervals [place] Rate: 53 P: 39 AK: 160 QRS: 67 QRSD: 90 T: 55 QT: 444 QTc: 417 Interpretive Statements SINUS BRADYCARDIA ST ELEVATION IN DIFFUSE LEADS- PROBABLY EARLY REPOLARIZATION BASELINE ARTIFACT- I, III, AVR, AVL, AVF BORDERLINE ECG Compared to ECG 12/17/2024 10:59:04 HEART RATE HAS DECREASED Early repolarization now present Electronically Signed On 12-17-2024 15:20:05 CDT by Neo Sharma D.O.
[2024-12-17 12:04] LABS: Hematocrit 40.3 % (37.0-47.0); Hemoglobin 13.9 g/dL (12.0-15.0); Immature Granulocyte Percent A 0.2 % (0-0.5); Lymphocytes Absolute Auto 2.50 K/mm3 (0.9-3.2); Mean Corpuscular HGB Conc 34.5 g/dl (32-36); Mean Corpuscular Hemoglobin 29.8 pg (26-34); Mean Corpuscular Volume 86.5 fl (80-100); Nucleated Red Blood Cells Absolute Auto 0.000 K/mm3 (0.0-0.012); Nucleated Red Blood Cells Perc 0.0 % (0.0-0.2); Platelet Count Result 262 k/mm3 (150-375); Red Blood Count 4.66 M/mm3 (4.2-5.4); White Blood Count 5.8 K/mm3 (4.5-10.0)
[2024-12-17 12:20] LABS: Alanine Aminotransferase 29 U/L (6-35); Albumin Level 4.0 g/dL (3.5-5.1); Alkaline Phosphatase 87 U/L (38-126); Anion Gap 3 mmol/L (4-12); Aspartate Amino Transferase 33 U/L (14-36); Bilirubin,Total 0.4 mg/dL (0.2-1.3); Blood Urea Nitrogen 14 mg/dL (7-17); Calcium 8.8 mg/dL (8.4-10.2); Carbon Dioxide 32 mmol/L (22-30); Chloride 102 mmol/L (98-107); Estimated CRCL calculation 67 ml/min; Estimated Glomerular Filt Rate > 60; Glucose 87 mg/dL (65-110); Lipase 123 U/L (23-300); Potassium 3.5 mmol/L (3.4-5.0); Sodium 137 mmol/L (137-145); Total Protein 7.2 g/dL (6.3-8.2)
[2024-12-17 12:27] LABS: Troponin I < 0.012 ng/mL (0.000-0.034)
[2024-12-17 12:37] LABS: INR 1.0; Partial Thromboplastin Time 26.2 Seconds (22.3-36.8); Prothrombin Time 13.5 Seconds (11.1-14.7)
[2024-12-17] MEDS: ASPIRIN 81 MG CHEWABLE TABLET 324 MG PO (12:49)
--- NOTE | 2024-12-17 13:59 | ED.GENADULT ---
HPI - General Adult General Chief complaint: Chest Pain Stated complaint: cp Time Seen by Provider: 12/17/24 12:15 History of Present Illness HPI narrative: 54-year-old female presents emergency department for evaluation for some right-sided chest wall pain. Patient was at work and resting when she had onset some tightness in the right chest wall. Patient initially attributed this to some muscular strain as patient did do some new weightlifting just a few days ago. Patient denies any radiation of the pain to her neck arm or back. Patient states the pain was short lasting. Patient is pain-free at time of evaluation. Patient has no prior history of PE or DVT. Patient denies any prior cardiac history. Patient did have a stress test last year that was negative. Patient has no cardiac stents. Related Data Home Medications ?Medication ?Instructions ?Recorded ?Confirmed ?Last Taken ?Type aspirin 81 mg tablet,delayed 81 mg PO DAILY 05/20/19 08/13/24 10/30/23 History release pantoprazole 40 mg tablet,delayed 1 tablet PO DAILY 08/29/21 08/13/24 10/30/23 History release bisoprolol 5 1 tablet PO DAILY 01/31/24 08/13/24 Unknown History mg-hydrochlorothiazide 6.25 mg tablet Allergies Allergy/AdvReac Type Severity Reaction Status Date / Time erythromycin base Allergy Mild Unknown Verified 12/17/24 12:18 Penicillins Allergy Mild Unknown Verified 12/17/24 12:18 Review of Systems Review of Systems: All systems reviewed & are unremarkable except as noted in HPI and below PMFSH Past Medical History Medical History Acute LUQ pain History of hyperlipidemia History of hypertension Surgical History Surgical History History of hysteroscopy History of thyroidectomy History of appendectomy History of tubal ligation Social History Social History Smoking status: Never smoker Substance use type: does not use Do You Feel Safe in your Home?: Yes Lack of Transportation: No Lack of Food: Never True Current Housing: I Have Housing Concerned About Future Housing: No Difficulty Paying Gas/Electric Bills: No Difficulty Paying for Meds: No Currently Unemployed: No Education: Associate Degree Difficulty w/ Childcare or Family Care: No Living arrangements: alone Gender identity (if verbalized by the patient): Female Exam Narrative: APPEARANCE: Well appearing, no pain, no distress, well-nourished. HEAD: normocephalic, atraumatic. EYES: PERRLA/EOMI, conjunctivae clear. NOSE: Normal no drainage EARS:TMS clear with good light reflex. THROAT: Pharynx clear, no exudate. NECK: Supple. No adenopathy, no masses. RESPIRATORY: Airway patent, respirations nonlabored. Clear to auscultation bilaterally, no rales, rhonchi, wheezing. CARDIOVASCULAR: Regular rate and rhythm without murmurs rubs or gallops. ABDOMINAL: Soft, nontender, nondistended, normal bowel sounds MUSCULOSKELETAL: Moves all extremities. Strength/ROM intact, No edema, No calf tenderness. NEURO: Alert. Cranial nerves II through XII intact. Good gait. Good coordination SKIN: Warm, dry. Normal Color Course Vital Signs Vital signs: Vital Signs Temperature 98.0 F 12/17/24 10:58 Pulse Rate 65 12/17/24 10:58 Respiratory Rate 17 12/17/24 10:58 Blood Pressure 146/69 H 12/17/24 10:58 Pulse Oximetry 99 12/17/24 10:58 Oxygen Delivery Room Air 12/17/24 10:58 Temperature 98.1 F 12/17/24 12:12 Pulse Rate 63 12/17/24 14:28 Respiratory Rate 15 12/17/24 14:28 Blood Pressure 131/67 12/17/24 14:28 Pulse Oximetry 100 12/17/24 14:28 Oxygen Delivery Room Air 12/17/24 12:17 Medical Decision Making [facility] Narrative Medical decision making narrative: 54-year-old female presents emergency department for evaluation for chest pain. Chest pain was resolved prior to arrival emergency department. Patient is currently afebrile with no leukocytosis hemoglobin of 13.9. Patient had negative serial EKGs and negative serial troponins. Chest x-ray shows no acute cardiopulmonary abnormality. Patient was updated results of her workup. All questions concerns were addressed patient is comfortable the plan for discharge and close follow-up. I do suspect patient's symptoms were most likely due to muscular strain and low concern for ACS. Differential Diagnosis Differential Diagnosis: Muscle strain, pneumonia, pneumothorax, ACS gastritis, esophagitis, pulmonary embolism Vital Signs Vital Signs: Vital Signs Temperature 98.0 F 12/17/24 10:58 Pulse Rate 65 12/17/24 10:58 Respiratory Rate 17 12/17/24 10:58 Blood Pressure 146/69 H 12/17/24 10:58 Pulse Oximetry 99 12/17/24 10:58 Oxygen Delivery Room Air 12/17/24 10:58 Temperature 98.1 F 12/17/24 12:12 Pulse Rate 63 12/17/24 14:28 Respiratory Rate 15 12/17/24 14:28 Blood Pressure 131/67 12/17/24 14:28 Pulse Oximetry 100 12/17/24 14:28 Oxygen Delivery Room Air 12/17/24 12:17 Lab Data Lab results reviewed: Yes I reviewed the patient's lab results. 12/17/24 11:56 12/17/24 11:56 Labs: Lab Results 12/17/24 12/17/24 Range/Units 11:56 13:33 WBC 5.8 (4.5-10.0) K/mm3 RBC 4.66 (4.2-5.4) M/mm3 Hgb 13.9 (12.0-15.0) g/dL Hct 40.3 (37.0-47.0) % MCV 86.5 (80-100) fl MCH 29.8 (26-34) pg MCHC 34.5 (32-36) g/dl RDW 12.1 (11.5-14.5) % Plt Count 262 (150-375) k/mm3 MPV 9.6 (7.4-10.4) fl Immature Gran % (Auto) 0.2 (0-0.5) % Neut % (Auto) 48.6 (45.5-73.1) % Lymph % (Auto) 43.2 (18.3-44.2) % [place] % (Auto) 5.9 (2.6-8.5) % Eos % (Auto) 1.2 (0-4.4) % Baso % (Auto) 0.9 (0.2-1.2) % Lymph # (Auto) 2.50 (0.9-3.2) K/mm3 [place] # (Auto) 0.3 (0.1-0.6) K/mm3 Eos # (Auto) 0.1 (0-0.3) K/mm3 Baso # (Auto) 0.1 (0.0-0.1) K/mm3 Abs Immat Gran (auto) 0.01 (0.00-0.031) K/mm3 Absolute Neuts (auto) 2.8 (1.3-6.7) K/mm3 Absolute Nucleated RBC 0.000 (0.0-0.012) K/mm3 Nucleated RBC % 0.0 (0.0-0.2) % PT 13.5 (11.1-14.7) Seconds INR 1.0 APTT 26.2 (22.3-36.8) Seconds Sodium 137 (137-145) mmol/L Potassium 3.5 (3.4-5.0) mmol/L Chloride 102 (98-107) mmol/L Carbon Dioxide 32 H (22-30) mmol/L Anion Gap 3 L (4-12) mmol/L BUN 14 (7-17) mg/dL Creatinine 0.75 (0.7-1.0) mg/dL Estim Creat Clear Calc 67 ml/min Estimated GFR > 60 (59 - ) Glucose 87 (65-110) mg/dL Calcium 8.8 (8.4-10.2) mg/dL Total Bilirubin 0.4 (0.2-1.3) mg/dL AST 33 (14-36) U/L ALT 29 (6-35) U/L Alkaline Phosphatase 87 (38-126) U/L Troponin I < 0.012 < 0.012 (0.000-0.034) ng/mL Total Protein 7.2 (6.3-8.2) g/dL Albumin 4.0 (3.5-5.1) g/dL Lipase 123 (23-300) U/L Imaging Data Radiologist's impression: Impressions Chest X-Ray 12/17/24 10:52 IMPRESSION: 1. No acute cardiopulmonary findings. ECG Data EKG #1: EKG Interpretation: normal rate, tachycardia, no ectopy, non-specific ST changes, normal QRS, normal QT and NL axis Discharge Plan Discharge Clinical Impression: Atypical chest pain Patient Disposition: Home Condition: Stable Instructions: Antibiotic Form, Chest Wall Pain (ED) Additional Instructions: Tylenol and ibuprofen for pain control. Flexeril for muscle spasm. Have close follow-up with your primary care physician for additional outpatient cardiac testing. If you have any worsening symptoms then please call or return to the emergency department. Patient Language: Telugu Prescriptions: New cyclobenzaprine 10 mg tablet 10 mg PO BID PRN (Reason: muscle spasm) Qty: 14 0RF No Action bisoprolol-hydrochlorothiazide 5-6.25 mg tablet 1 tablet PO DAILY aspirin 81 mg Tablet,Delayed Release (Dr/Ec) 81 mg PO DAILY pantoprazole 40 mg tablet,delayed release (DR/EC) 1 tablet PO DAILY atorvastatin [Lipitor] 10 mg tablet 10 mg PO DAILY Qty: 30 5RF Follow-up/Referrals: Wisam Castellano MD [Primary Care Provider, Family Practice] Quality HEART score for chest pain patients History: slightly suspicious ECG: normal Age: > 45 and < 65 years Risk factors: 1 or 2 risk factors Troponin: < or = to 1x normal limit Heart score: 2
[2024-12-17 14:01] LABS: Troponin I < 0.012 ng/mL (0.000-0.034)
== END 2024-12-17 14:28 | disposition home or self-care (01) ==
PROVIDERS: Emergency Provider Emergency Medicine; PCP Emergency Medicine
DX: R07.89 Other chest pain (principal); I10 Essential (primary) hypertension; E78.5 Hyperlipidemia, unspecified; E89.0 Postprocedural hypothyroidism; Z79.82 Long term (current) use of aspirin; Z79.899 Other long term (current) drug therapy; R00.1 Bradycardia, unspecified; R94.31 Abnormal electrocardiogram [ECG] [EKG]; R00.0 Tachycardia, unspecified
CPT/HCPCS: 36415; 71046; 80053; 83690; 84484; 85025; 85610; 85730; 93005; 99284; A9270